=== PATIENT | male | born 1980 | race Caucasian/White ===

== ENCOUNTER 2022-04-19 11:57 | Inpatient (IN) | payer BC, SELFPAY ==
--- NOTE | ~2022-04-19 | XR_ITS ---
EXAMINATION: XR chest 2V DATE: 04/24/2022 08:54 INDICATION: Cough and fever TECHNIQUE: PA and lateral views of the chest were obtained. COMPARISON: Chest radiograph dated 09/12/2008 FINDINGS: New opacities in the bilateral lung bases with blunting at the costophrenic angles and posterior sulc i. The remainder of the lungs are clear. No pulmonary edema or pneumothorax. The cardiomediastinal si lhouette is normal. Visualized bones and soft tissues are unremarkable. IMPRESSION: 1. Small bilateral pleural effusions with bibasilar atelectasis versus pneumonia. Reviewed, dictated and finalized at location A. IMPRESSION: 1. Small bilateral pleural effusions with bibasilar atelectasis versus pneumoni a.
--- NOTE | ~2022-04-19 | CT_ITS ---
EXAMINATION: CT abdomen pelvis w con INDICATION: Nausea and vomiting, periumbilical pain TECHNIQUE: Computed tomographic images of the abdomen and pelvis were obtained after the administrati on of 100 cc of Omnipaque 350 intravenous contrast. The dose-length product (DLP) was 694.74 mGy-cm. Automated exposure control and iterative reconstruction technique were employed. COMPARISON: None available FINDINGS: Minimal dependent atelectasis is present in the lung bases. The heart size is normal. There is a small sliding hiatal hernia. There is mild diffusely decreased enhancement of the pancreas. A s mall amount of fluid surrounds the pancreas and tracks into the anterior pararenal space on the left. The liver is diffusely low in attenuation when compared with the spleen, consistent with hepatic yolanda atosis. The spleen, gallbladder, and adrenal glands are normal. The kidneys are unremarkable. No path ologically enlarged abdominal or pelvic lymph nodes are identified. There is no free intraperitoneal gas or evidence of bowel obstruction. The appendix is normal. There is a small fat-containing umbilic al hernia. IMPRESSION: 1. Acute pancreatitis, likely interstitial edematous with acute peripancreatic fluid collection. Reviewed, dictated and finalized at location A.
--- NOTE | ~2022-04-19 | CT_ITS ---
EXAMINATION: CT abdomen pelvis w con DATE: 04/26/2022 09:05 INDICATION: Pancreatitis TECHNIQUE: Computed tomography (CT) of the abdomen and pelvis was performed with 100 cc Omnipaque 350 intravenous contrast. The dose-length product was 663.13 mGy-cm. Automated exposure control and iter ative reconstruction technique were employed. COMPARISON: CT dated 04/21/2022 FINDINGS: Heart size is normal. Moderate size hiatal hernia. Small bilateral pleural effusions with u nderlying compressive atelectasis. No significant vascular abnormality. No lymphadenopathy. No free a ir. The liver, spleen, adrenal glands and kidneys are unremarkable. Gallbladder is present. Small fat-con taining umbilical hernia. There is pancreatic enlargement with peripancreatic fluid/inflammation, con sistent with acute pancreatitis. No significant change from prior examination. Stable small hypodensi ties of the pancreas which may represent focal areas of necrosis or developing pseudocyst formation. Nonobstructive bowel pattern. No acute osseous abnormality. IMPRESSION: 1. Stable findings of acute pancreatitis. Ill-defined hypodense areas within the pancreas may represe nt pseudocyst formation or pancreatic necrosis. Reviewed, dictated and finalized at location A. IMPRESSION: 1. Stable findings of acute pancreatitis. Ill-defined hypodense areas within th e pancreas may represent pseudocyst formation or pancreatic necrosis.
--- NOTE | ~2022-04-19 | MR_ITS ---
EXAMINATION: MR MRCP wo/w con/w 3D wo ind DATE: 04/23/2022 12:21 INDICATION: Pancreatitis. Abdominal pain. TECHNIQUE: Magnetic resonance imaging (MRI) of the abdomen was performed without and with 18 mL Multi Seun intravenous contrast. Sequences included coronal T2-weighted FS FSE, coronal T2-weighted FSE, a xial T1-weighted LAVA, coronal FS FIESTA, axial dual-echo T1-weighted SPGR, coronal lava-FLEX, sagitt al T2-weighted FSE, axial T2-weighted FSE, and axial DWI. Thick-slab T2-weighted FSE images were obta ined for magnetic resonance cholangiopancreatography (MRCP). Maximum intensity projection 3-D reconst ructions of the volumetric data were created by the technologist. Postcontrast sequences included cor onal LAVA-flex and time course of axial T1-weighted LAVA. COMPARISON: CT abdomen and pelvis 04/21/2022 FINDINGS: ABDOMEN MRI: There are small pleural effusions. There are dependent airspace opacities in the lungs, likely atelectasis. There is diffuse hepatic steatosis. The gallbladder is distended, likely secondar y to fasting. There is sludge in the gallbladder. There is a moderate-sized sliding hiatal hernia. Th ere is edema around the pancreas, consistent with acute interstitial pancreatitis. The spleen, adrena l glands, and kidneys are normal. There is a small volume of ascites. ABDOMEN MRCP: The common duct is normal in caliber and measures 2 mm. No choledocholithiasis. IMPRESSION: 1. Normal common duct. No choledocholithiasis. 2. Acute interstitial pancreatitis. 3. Small volume of ascites. 4. Small pleural effusions. 5. Diffuse hepatic steatosis. 6. Moderate-sized sliding hiatal hernia. Reviewed, dictated and finalized at location A.
--- NOTE | ~2022-04-19 | XR_ITS ---
EXAMINATION: XR abdomen/kub 1V DATE: 04/20/2022 13:47 INDICATION: Low abdominal pain. Adynamic ileus. TECHNIQUE: A supine view of the abdomen on 2 radiographs was obtained. COMPARISON: CT abdomen and pelvis 04/19/2022 FINDINGS: There are no dilated loops of bowel. There is a moderate volume of stool in the colon. IMPRESSION: 1. Nonobstructive bowel gas pattern. Reviewed, dictated and finalized at location A.
--- NOTE | ~2022-04-19 | US_ITS ---
EXAMINATION: US right upper quadrant DATE: 04/20/2022 09:47 INDICATION: Acute pancreatitis. Abnormal liver function tests. TECHNIQUE: Multiple grayscale and Doppler ultrasound images of the abdomen were obtained. COMPARISON: CT abdomen and pelvis 04/19/2022 FINDINGS: The pancreas is obscured by bowel gas. There is diffuse hepatic steatosis. No liver surface nodularity. The gallbladder is normal in size. No gallstones or gallbladder wall thickening. There w as no sonographic Calix sign. The common duct is normal and measures 6 mm. There is trace ascites. IMPRESSION: 1. Diffuse hepatic steatosis. 2. Trace ascites. Reviewed, dictated and finalized at location A.
--- NOTE | ~2022-04-19 | XR_ITS ---
EXAMINATION: XR abdomen/kub 1V DATE: 04/19/2022 21:09 INDICATION: Abdominal pain. Vomiting. TECHNIQUE: A supine view of the abdomen on 2 radiographs was obtained. COMPARISON: CT abdomen and pelvis 04/19/2022 FINDINGS: There are no dilated loops of bowel. There is a small volume of stool in the colon. There i s contrast in the bladder, which is distended. IMPRESSION: 1. Normal bowel gas pattern. Reviewed, dictated and finalized at location A.
--- NOTE | ~2022-04-19 | CT_ITS ---
EXAMINATION: CT abdomen pelvis w con DATE: 04/21/2022 18:07 INDICATION: pancreatitis, increasing WBC TECHNIQUE: Computed tomography (CT) of the abdomen and pelvis was performed with 100 mL Omnipaque-350 intravenous contrast. Automated exposure control and iterative reconstruction technique were employe d. The dose-length product was 750.61 mGy-cm. COMPARISON: 04/19/2022. FINDINGS: Lower thorax: Large hiatal hernia. New small bilateral pleural effusions with adjacent atelectasis. Liver: Steatosis. Biliary/Gallbladder: Gallbladder is normal. No bile duct dilation. Pancreas: 1.1 cm and 1.9 cm hypodensities in the posterior inferior body of the pancreas, may represe nt a developing pseudocysts or focal area of necrosis. Increasing peripancreatic edema and fluid. Spleen: Normal. Adrenals:No mass. Kidneys: No mass, stone, or hydronephrosis. GI tract: Dilated third portion of the duodenum, likely reactive ileus. Normal appendix. Mesentery/Peritoneum: No free air. Increasing, now moderate peritoneal fluid. Retroperitoneum: No mass. Small eccentric filling defects noted in the splenic vein. Pelvis: Pelvic organs are within normal limits. Soft Tissues: Soft tissues and body wall unremarkable. Bones: No acute osseous finding. IMPRESSION: Worsening findings of acute pancreatitis. Hypodense foci in the pancreatic body may represent a devel oping pseudocyst or focal necrosis. Multifocal nonocclusive splenic vein thrombi are suspected. New s mall bilateral pleural effusions. Moderate ascites. Reviewed, dictated and finalized at location K. IMPRESSION: Worsening findings of acute pancreatitis. Hypodense foci in the pancreatic body may represent a developing pseudocyst or focal necrosis. Multifocal nonocclusi ve splenic vein thrombi are suspected. New small bilateral pleural effusions. M oderate ascites.
--- NOTE | 2022-04-19 12:22 | ED.ABDPAIN ---
HPI - Abdominal Pain General Chief Complaint: Abdominal Pain Stated Complaint: abdominal pain x 1 day Time Seen by Provider: 04/19/22 12:01 History of Present Illness HPI narrative: 41-year-old male presented to the emergency department for evaluation of central abdominal pain that started approximately 10 AM. Patient states that he has central abdominal cramping with associated nausea and vomiting. Patient states since his first episode of emesis he has had no further emesis. Patient denies any constipation or diarrhea. Patient denies any previous surgical history. Patient denies any significant past medical history. Patient denies any prior history of gallbladder disease. Patient denies drinking alcohol. Patient has no prior history of pancreatitis. Related Data Allergies Allergy/AdvReac Type Severity Reaction Status Date / Time No Known Allergies Allergy Verified 04/19/22 12:48 Review of Systems Review of Systems: CONSTITUTIONAL: Denies fever, chills, or sweats. EYES: Denies visual changes, redness, or discharge. ENT: Denies rhinorrhea, congestion, sore throat, or otalgia. CARDIOVASCULAR: Denies chest pain, palpitations, or edema. RESPIRATORY: Denies cough or dyspnea. GASTROINTESTINAL: See HPI GENITOURINARY: Denies dysuria or hematuria. SKIN: Denies rash or itching. MUSCULOSKELETAL: Denies back pain, joint pain, or myalgia. NEUROLOGIC: Denies headache, numbness, or weakness. [facility] Past Medical History Medical History (Updated 04/19/22 @ 20:13 by Luna Lundy PA-C) Anxiety Benign essential hypertension No longer on medication. Depression Gastroesophageal reflux disease Surgical History Surgical History (Updated 04/19/22 @ 20:14 by Luna Lundy PA-C) History of colonoscopy History of esophagogastroduodenoscopy Family History Family History Mother Fibromyalgia Father Hypoglycemia Grandparent Diabetes mellitus Breast cancer Grandparent , Age 80 Parkinsons disease Grandparent , Lung Cancer Lung cancer Grandparent , Unknown No problems noted. Social History Social History (Updated 04/19/22 @ 20:15 by Luna Lundy PA-C) Social History: Surrogate medical decision maker: Linette Rider, spouse. Code status: Full code. Smoking status: Never smoker Alcohol intake: never Substance use: never Living arrangements: with family Occupation/Education: unemployed Spiritual care concerns: No Exam Narrative: APPEARANCE: Well appearing, no pain, no distress, well-nourished. HEAD: normocephalic, atraumatic. EYES: PERRLA/EOMI, conjunctivae clear. NOSE: Normal no drainage NECK: Supple. No adenopathy, no masses. RESPIRATORY: Airway patent, respirations nonlabored. Clear to auscultation bilaterally, no rales, rhonchi, wheezing. CARDIOVASCULAR: Regular rate and rhythm without murmurs rubs or gallops. ABDOMINAL: Soft, normal bowel sounds, nondistended, mid abdominal tenderness, no rebound or guarding MUSCULOSKELETAL: Moves all extremities. Strength/ROM intact, No edema, No calf tenderness. NEURO: Alert. Cranial nerves II through XII intact. Grossly intact with SKIN: Warm, dry. Normal Color Course Course Emergency Course: Patient does have a significantly elevated lipase. CT scan did show evidence of pancreatitis. Patient was treated with multiple liters of normal saline. Patient was also provided medications for pain and nausea control. Patient was updated the results of his labs and was comfortable with the plan for admission. Case was discussed with the hospitalist and patient was accepted. Patient was stable at time of admission. Vital Signs Vital signs: Vital Signs Temperature 97.6 F 04/19/22 12:46 Pulse Rate 88 04/19/22 12:46 Respiratory Rate 16 04/19/22 12:46 Blood Pressure 144/92 H 04/19/22 12:46 Pulse Oximetry 99
[2022-04-19 12:46] VITALS: BP 144/92; PULSE 88; RESP 16; TEMP 36.4; O2SAT 99
[2022-04-19] MEDS: HYDROmorphone HCL INJ (*CRX) 1 MG/ML SYR 0.5 MG IV PUSH ×3 (12:50→21:09)
[2022-04-19] MEDS: PANTOPRAZOLE SODIUM IV 40 MG VIAL IV PUSH (12:51)
[2022-04-19] MEDS: ONDANSETRON INJ 4 MG/2 ML VIAL IV PUSH ×2 (12:51→17:49)
[2022-04-19] MEDS: SODIUM CHLORIDE 0.9% IV 1,000 ML 999 ML IV CONT ×2 (12:51→14:17)
[2022-04-19 12:54] LABS: Basophils Absolute Auto 0.1 K/mm3 (0.0-0.1); Basophils Percent Auto 0.7 % (0.2-1.2); Eosinophils Absolute Auto 0.2 K/mm3 (0-0.3); Eosinophils Percent Auto 0.9 % (0-4.4); Hematocrit 40.4 % (42.0-52.0); Immature Granulocyte Absolute 0.08 K/mm3 (0.00-0.031); Immature Granulocyte Percent A 0.5 % (0-0.5); Lymphocytes Absolute Auto 3.12 K/mm3 (0.9-3.2); Lymphocytes Percent Auto 18.6 % (18.3-44.2); Mean Corpuscular HGB Conc 32.2 g/dl (32-36); Mean Corpuscular Hemoglobin 26.3 pg (26-34); Mean Corpuscular Volume 81.8 fl (80-100); Monocytes Percent Auto 5.8 % (2.6-8.5); Neutrophils Absolute Auto 12.3 K/mm3 (1.3-6.7); Neutrophils Percent Auto 73.5 % (45.5-73.1); Platelet Count Result 372 k/mm3 (150-375); Red Blood Count 4.94 M/mm3 (4.6-6.20); Red Cell Distribution Width 13.8 % (11.5-14.5); White Blood Count 16.7 K/mm3 (4.5-10.0)
[2022-04-19 12:57] LABS: Estimated CRCL calculation 106 ml/min; Estimated Glomerular Filt Rate > 60
[2022-04-19 13:04] LABS: Alanine Aminotransferase 32 U/L (6-50); Albumin Level 4.3 g/dL (3.5-5.1); Alkaline Phosphatase 78 U/L (38-126); Anion Gap 11 mmol/L (8-16); Aspartate Amino Transferase 82 U/L (17-59); Bilirubin,Total 0.5 mg/dL (0.2-1.3); Blood Urea Nitrogen 20 mg/dL (9-20); Calcium 9.1 mg/dL (8.4-10.2); Carbon Dioxide 21 mmol/L (22-30); Chloride 105 mmol/L (98-107); Estimated CRCL calculation 106 ml/min; Estimated Glomerular Filt Rate > 60; Glucose 137 mg/dL (65-110); Potassium 3.6 mmol/L (3.4-5.0); Sodium 137 mmol/L (137-145)
[2022-04-19 13:05] LABS: Lactic Acid Reflex 2.8 mmol/L (0.7-2.0)
[2022-04-19 14:01] LABS: Lipase > 40000 U/L (23-300)
--- NOTE | 2022-04-19 14:40 | PM.IMHP ---
H&P: HPI History of Present Illness Date/Time: 04/19/22 14:40 Chief Complaint: Abdominal pain. Narrative: This is a 41-year-old male with GERD and hypertension who presented to the emergency department from home for evaluation of abdominal pain. He felt fine when he woke up this morning and had pop tarts for breakfast. A couple of hours later, simply while sitting on the couch, he developed sudden onset periumbilical abdominal pain radiating to the epigastric and upper abdomen which he describes as ?cramping, aching, burning, and sharp.? He broke out into a sweat and he had significant nausea and several episodes of vomiting thereafter. The pain has been constant since the onset though it waxes and wanes in intensity. Pain is worse when lying supine and is somewhat better when in a curled up position he had a similar episode about a month ago however it was self-limiting and was not nearly as severe. He does not think it was related to food. In the ER he was found to have a lipase of greater than 40,000 with mild AST elevation however the rest of his LFTs are normal. CT of the abdomen and pelvis shows acute pancreatitis, likely interstitial edematous with acute peripancreatic fluid collection and he is being admitted in this setting. He has no personal or family history of pancreatitis. He has been on omeprazole for many years and takes no other medications or [id number]-[id number] supplements. He does not consume alcohol. He has been told previously that his cholesterol was high though he is not certain if his triglycerides were high. Review of Systems Review of Systems: Twelve systems were reviewed. No fever. He has had sweats. No cold or flu symptoms. He denies chest pain shortness of breath. No diarrhea. No dysuria. Except as documented, all other systems were reviewed and are negative. [facility] Past Medical History Medical History (Updated 04/19/22 @ 20:13 by Luna Lundy PA-C) Anxiety Benign essential hypertension No longer on medication. Depression Gastroesophageal reflux disease Surgical History Surgical History (Updated 04/19/22 @ 20:14 by Luna Lundy PA-C) History of colonoscopy History of esophagogastroduodenoscopy Family History Family History Mother Fibromyalgia Father Hypoglycemia Grandparent Diabetes mellitus Breast cancer Grandparent , Age 80 Parkinsons disease Grandparent , Lung Cancer Lung cancer Grandparent , Unknown No problems noted. Social History Social History (Updated 04/19/22 @ 20:15 by Luna Lundy PA-C) Social History: Surrogate medical decision maker: Linette Rider, spouse. Code status: Full code. Smoking status: Never smoker Alcohol intake: never Substance use: never Living arrangements: with family Occupation/Education: unemployed Spiritual care concerns: No Meds Home Medications and Allergies Home Medications Medication Instructions Recorded Confirmed Type omeprazole 40 mg capsule,delayed 40 mg PO DAILY #90 caps 12/28/19 04/19/22 Rx release Allergies Allergy/AdvReac Type Severity Reaction Status Date / Time No Known Allergies Allergy Verified 04/19/22 12:48 Vital Signs Vital Signs - 24 hr 04/19/22 12:46 04/19/22 16:29 04/19/22 16:26 Temperature 97.6 F 97.2 F L Pulse Rate 88 84 Respiratory Rate 16 16 Blood Pressure 144/92 H 140/93 H Pulse Oximetry 99 100 Oxygen Delivery Room Air Exam Narrative: General: Ill-appearing male sitting up in bed. Weight: 100 kg. BMI: 29.1. HEENT: PERRL, EOMI. Sclerae anicteric. Tacky mucous membranes. Neck: Supple. Respiratory: Lungs are clear to auscultation bilaterally. Cardiovascular: Regular rate and rhythm with S1-S2. Gastrointestinal: Abdomen is mildly distended and tender to palpation and percussion throughout the periumbilical eric
[2022-04-19 15:50] LABS: Reflex Lactic Acid Yes or No Add Lactic
--- NOTE | 2022-04-19 16:20 | ADMGEN ---
This patient, Hakan Rider, was admitted to 3 Med Surg Room 319-01. Patient/family oriented to hospital policies and general routines including ID bracelet, bed and alarms, visiting hours, pain management, procedures, bathroom and other care routines, personal items, smoking policy, room service/diet, and visiting hours. Information on how to activate the Rapid Response Team has been discussed. Patient/Family are encouraged to report perceived risks to care and to ask questions if they do not understand what they are told or what they should do.
[2022-04-19 16:26] VITALS: BP 140/93; PULSE 84; RESP 16; TEMP 36.2; O2SAT 100
[2022-04-19] MEDS: LACTATED RINGERS 1,000 ML 200 ML IV CONT ×2 (16:31→20:55)
[2022-04-19 17:01] LABS: Lactic Acid 1.8 mmol/L (0.7-2.0)
[2022-04-19 20:20] LABS: Alanine Aminotransferase 44 U/L (6-50); Albumin Level 4.1 g/dL (3.5-5.1); Alkaline Phosphatase 79 U/L (38-126); Anion Gap 10 mmol/L (8-16); Aspartate Amino Transferase 89 U/L (17-59); Bilirubin,Total 0.4 mg/dL (0.2-1.3); Blood Urea Nitrogen 16 mg/dL (9-20); Calcium 8.6 mg/dL (8.4-10.2); Carbon Dioxide 21 mmol/L (22-30); Chloride 106 mmol/L (98-107); Estimated CRCL calculation 118 ml/min; Estimated Glomerular Filt Rate > 60; Glucose 131 mg/dL (65-110); Magnesium 2.1 mg/dL (1.6-2.3); Potassium 4.3 mmol/L (3.4-5.0); Sodium 137 mmol/L (137-145); Triglycerides 319 mg/dL (<150)
[2022-04-19 20:56] LABS: Lipase 3957 U/L (23-300)
[2022-04-19] MEDS: PROMETHAZINE HCL 25 MG/ML AMPUL 12.5 MG IV PUSH (21:09)
[2022-04-19 22:00] VITALS: BP 145/87; PULSE 73; RESP 19; TEMP 36.5; O2SAT 96
[2022-04-19 22:05] LABS: Appearance Urine Clear (Clear); Bilirubin Urine Negative (Negative); Blood Urine Negative (Negative); Color Urine Yellow (Yellow); Glucose Urine UA Negative (Negative); Ketones Urine Negative (Negative); Leukocyte Esterase Ur Negative LEU/UL (Negative); Nitrate Urine Negative (Negative); Protein Urine Trace mg/dL (Negative); Urobilinogen Urine 0.2 mg/dL (<2.0)
[2022-04-19 22:08] LABS: Mucus Urine Rare /lpf; RBC Urine 0-2 /hpf (0-2); Squamous Epithelial Cell Urine Rare /hpf (Few); WBC Urine 0-3 /hpf
[2022-04-19 22:10] LABS: Add Urine Microscopic? YES
[2022-04-19] MEDS: FAMOTIDINE 20 MG/2 ML VIAL IV PUSH (22:42)
[2022-04-20] MEDS: ONDANSETRON INJ 4 MG/2 ML VIAL IV PUSH ×5 (01:43→18:35)
[2022-04-20] MEDS: HYDROmorphone HCL INJ (*CRX) 1 MG/ML SYR 0.5 MG IV PUSH ×2 (01:43→05:35)
[2022-04-20] MEDS: LACTATED RINGERS 1,000 ML 200 ML IV CONT ×2 (01:44→06:39)
[2022-04-20 05:57] VITALS: BP 179/80; PULSE 80; RESP 17; TEMP 36.7; O2SAT 99
[2022-04-20 06:12] LABS: Hematocrit 43.2 % (42.0-52.0); Hemoglobin 13.6 g/dL (14.0-18.0); Mean Corpuscular HGB Conc 31.5 g/dl (32-36); Mean Corpuscular Volume 82.4 fl (80-100); Mean Platelet Volume 11.7 fl (7.4-10.4); Platelet Count Result 340 k/mm3 (150-375); Red Blood Count 5.24 M/mm3 (4.6-6.20); Red Cell Distribution Width 14.3 % (11.5-14.5); White Blood Count 21.9 K/mm3 (4.5-10.0)
[2022-04-20 06:28] LABS: Alanine Aminotransferase 36 U/L (6-50); Alkaline Phosphatase 76 U/L (38-126); Anion Gap 9 mmol/L (8-16); Aspartate Amino Transferase 48 U/L (17-59); Bilirubin,Total 0.5 mg/dL (0.2-1.3); Blood Urea Nitrogen 14 mg/dL (9-20); Calcium 8.7 mg/dL (8.4-10.2); Carbon Dioxide 26 mmol/L (22-30); Chloride 101 mmol/L (98-107); Estimated CRCL calculation 118 ml/min; Estimated Glomerular Filt Rate > 60; Glucose 120 mg/dL (65-110); Lipase 1458 U/L (23-300); Sodium 136 mmol/L (137-145)
[2022-04-20 06:34] VITALS: BP 179/80
[2022-04-20] MEDS: HYDROmorphone HCL INJ (*CRX) 1 MG/ML SYR IV PUSH ×7 (06:53→20:49)
[2022-04-20] MEDS: FAMOTIDINE 20 MG/2 ML VIAL IV PUSH ×2 (08:01→20:50)
--- NOTE | 2022-04-20 11:19 | P.PNIM_ITS ---
Progress Note: A&P Assessment and Plan (1) Acute pancreatitis: Code(s): K85.90 - Acute pancreatitis without necrosis or infection, unspecified Status: Acute Assessment and Plan: * RIGHT UPPER QUADRANT ULTRASOUND NEGATIVE AND AST RESOLVED, VIRTUALLY EXCLUDING GALLSTONE PANCREATITIS * TRIGLYCERIDES IN THE 300S EXCLUDING HYPERTRIGLYCERIDEMIA ETIOLOGY * ALCOHOLIC PANCREATITIS IS EXCLUDED BY HISTORY * AUTOIMMUNE PANCREATITIS IS POSSIBLE BUT CLINICALLY LESS LIKELY THAN VIRAL OR IDIOPATHIC * IGG 4 LEVEL ORDERED 04/20 * KUB FOR POSSIBLE ILEUS 04/20 * CONTINUE IV FLUIDS AND BOWEL REST * START PPN IF UNABLE TO RESUME ORAL NUTRITION WITHIN THE NEXT 48 HOURS * CONSIDER REPEAT CT AND SURGICAL CONSULTATION IF WHITE COUNT CONTINUES TO RISE * 04/20 IMPROVEMENT IN LFTS AND LIPASE ARE AGAINST COMPLICATIONS SUCH N ECROSIS OR ABSCESS OR PSEUDOCYST * FOLLOW-UP LAB (2) Benign essential hypertension: Code(s): I10 - Essential (primary) hypertension Status: Acute Assessment and Plan: * CONTINUE TO MONITOR (3) Gastroesophageal reflux disease: Code(s): K21.9 - Gastro-esophageal reflux disease without esophagitis Status: Acute Assessment and Plan: * CONTINUE PPI (4) Hepatic steatosis: Code(s): K76.0 - Fatty (change of) liver, not elsewhere classified Status: Acute Assessment and Plan: * LIKELY RELATED TO OBESITY * CHECK HEMOGLOBIN A1C Subjective Date/time seen: 04/20/22 11:19 CONTINUES HAVE SEVERE EPIGASTRIC PAIN RADIATING STRAIGHT THROUGH TO THE BACK. SOME NAUSEA NO EMESIS. NO FLATUS OR STOOL. Denied chest pain or shortness of breath. Denied edema. Denied urinary issues. Review of Systems Review of Systems: All systems reviewed & are unremarkable except as noted in HPI and below Exam Narrative: HEENT: PERRL, sclerae nonicteric, pharyngeal mucosa pink and intact NECK: No JVD, adenopathy, or thyromegaly CHEST: Clear to auscultation. Normal effort. HEART: NL S1/S2, regular, no murmur ABDOMEN: BOWEL SOUNDS NOT AUDIBLE, ABDOMEN AND DISTENDED AND RELATIVELY FIRM, DIFFUSELY TENDER BUT MORE SO IN EPIGASTRIUM WITH GUARDING NO REBOUND, NO PALPABLE MASS EXTREMITIES: No cyanosis, edema, or clubbing NEUROLOGIC: CN intact and symmetric to inspection. MUSCULOSKELETAL: Tone and strength symmetric. PSYCH: Alert. Oriented to person, place, and time. Objective Data Vital Signs Vital Signs: Vital Signs - 24 hr 04/19/22 12:46 04/19/22 16:29 04/19/22 16:26 Temperature 97.6 F 97.2 F L Pulse Rate 88 84 Respiratory Rate 16 16 Blood Pressure 144/92 H 140/93 H Pulse Oximetry 99 100 Oxygen Delivery Room Air 04/19/22 20:00 04/19/22 22:00 04/20/22 05:57 Temperature 97.7 F 98.1 F Pulse Rate 73 80 Respiratory Rate 19 17 Blood Pressure 145/87 H 179/80 H Pulse Oximetry 96 99 Oxygen Delivery Room Air 04/20/22 06:34 04/20/22 08:00 Temperature Pulse Rate Respiratory Rate Blood Pressure 179/80 H Pulse Oximetry Oxygen Delivery Room Air Intake/Output Intake/Output: Intake & Output 04/17/22 04/18/22 04/19/22 04/20/22 23:59 23:59 23:59 23:59 Intake Total 3000 1999 Balance 30
--- NOTE | 2022-04-20 11:19 | PM.IMPN ---
Progress Note: A&P Assessment and Plan (1) Acute pancreatitis: Code(s): K85.90 - Acute pancreatitis without necrosis or infection, unspecified Status: Acute Assessment and Plan: RIGHT UPPER QUADRANT ULTRASOUND NEGATIVE AND AST RESOLVED, VIRTUALLY EXCLUDING GALLSTONE PANCREATITIS TRIGLYCERIDES IN THE 300S EXCLUDING HYPERTRIGLYCERIDEMIA ETIOLOGY ALCOHOLIC PANCREATITIS IS EXCLUDED BY HISTORY AUTOIMMUNE PANCREATITIS IS POSSIBLE BUT CLINICALLY LESS LIKELY THAN VIRAL OR IDIOPATHIC IGG 4 LEVEL ORDERED 04/20 KUB FOR POSSIBLE ILEUS 04/20 CONTINUE IV FLUIDS AND BOWEL REST START PPN IF UNABLE TO RESUME ORAL NUTRITION WITHIN THE NEXT [address] AND SURGICAL CONSULTATION IF WHITE COUNT CONTINUES TO RISE 04/20 IMPROVEMENT IN LFTS AND LIPASE ARE AGAINST COMPLICATIONS SUCH NECROSIS OR ABSCESS OR PSEUDOCYST FOLLOW-UP LAB (2) Benign essential hypertension: Code(s): I10 - Essential (primary) hypertension Status: Acute Assessment and Plan: CONTINUE TO MONITOR (3) Gastroesophageal reflux disease: Code(s): K21.9 - Gastro-esophageal reflux disease without esophagitis Status: Acute Assessment and Plan: CONTINUE PPI (4) Hepatic steatosis: Code(s): K76.0 - Fatty (change of) liver, not elsewhere classified Status: Acute Assessment and Plan: LIKELY RELATED TO OBESITY CHECK HEMOGLOBIN A1C Subjective Date/time seen: 04/20/22 11:19 CONTINUES HAVE SEVERE EPIGASTRIC PAIN RADIATING STRAIGHT THROUGH TO THE BACK. SOME NAUSEA NO EMESIS. NO FLATUS OR STOOL. Denied chest pain or shortness of breath. Denied edema. Denied urinary issues. Review of Systems Review of Systems: All systems reviewed & are unremarkable except as noted in HPI and below Exam Narrative: HEENT: PERRL, sclerae nonicteric, pharyngeal mucosa pink and intact NECK: No JVD, adenopathy, or thyromegaly CHEST: Clear to auscultation. Normal effort. HEART: NL S1/S2, regular, no murmur ABDOMEN: BOWEL SOUNDS NOT AUDIBLE, ABDOMEN AND DISTENDED AND RELATIVELY FIRM, DIFFUSELY TENDER BUT MORE SO IN EPIGASTRIUM WITH GUARDING NO REBOUND, NO PALPABLE MASS EXTREMITIES: No cyanosis, edema, or clubbing NEUROLOGIC: CN intact and symmetric to inspection. MUSCULOSKELETAL: Tone and strength symmetric. PSYCH: Alert. Oriented to person, place, and time. Objective Data Vital Signs Vital Signs: Vital Signs - 24 hr 04/19/22 12:46 04/19/22 16:29 04/19/22 16:26 Temperature 97.6 F 97.2 F L Pulse Rate 88 84 Respiratory Rate 16 16 Blood Pressure 144/92 H 140/93 H Pulse Oximetry 99 100 Oxygen Delivery Room Air 04/19/22 20:00 04/19/22 22:00 04/20/22 05:57 Temperature 97.7 F 98.1 F Pulse Rate 73 80 Respiratory Rate 19 17 Blood Pressure 145/87 H 179/80 H Pulse Oximetry 96 99 Oxygen Delivery Room Air 04/20/22 06:34 04/20/22 08:00 Temperature Pulse Rate Respiratory Rate Blood Pressure 179/80 H Pulse Oximetry Oxygen Delivery Room Air Intake/Output Intake/Output: Intake & Output 04/17/22 04/18/22 04/19/22 04/20/22 23:59 23:59 23:59 23:59 Intake Total 3000 1999 Balance 3000 1999 Meds/Results Medications: Active Medications Generic Name Dose Route Start Last Admin Trade Name Freq PRN Reason Stop Dose Admin Bisacodyl 10 mg 04/20/22 11:11 Bisacodyl 10 Mg Suppository RECTAL QAM PRN Constipation Famotidine 20 mg 04/19/22 21:00 04/20/22 08:01 Famotidine 20 Mg/2 Ml Vial IV PUSH 20 mg Q12HR MERYL Administration Hydromorphone HCl 1 mg 04/20/22 11:10 Hydromorphone Hcl Inj (*Crx) 1 Mg/Ml Syr IV PUSH Q2H PRN Pain Rated 7-10 Lactated Ringer's 1,000 mls @ 100 mls/hr 04/19/22 14:55 04/20/22 06:39 Lr - Lactated Ringers Iv IV CONT 200 mls/hr .Q10H MERYL Administration Ondansetron HCl 4 mg 04/19/22 14:26 04/20/22 10:06 Ondansetron Inj 4 Mg/2 Ml Vial IV PUSH 4 mg Q4H
[2022-04-20] MEDS: LACTATED RINGERS 1,000 ML 100 ML IV CONT ×2 (11:46→20:56)
[2022-04-20 14:00] VITALS: BP 183/126; PULSE 109; RESP 18; TEMP 37; O2SAT 98
[2022-04-20 20:37] VITALS: O2SAT 94
[2022-04-20 21:47] VITALS: BP 163/95; PULSE 115; RESP 18; TEMP 36.9; O2SAT 94
[2022-04-20 22:49] VITALS: BP 163/95; PULSE 115
[2022-04-21] VITALS (7 sets, daily range): BP systolic 145–168; BP diastolic 83–100; PULSE 98–120; RESP 18–20; TEMP 36.8–38; O2SAT 95–100
[2022-04-21] MEDS: METOPROLOL TARTRATE INJ 5 MG/5 ML VIAL IV PUSH ×4 (01:14→17:12)
[2022-04-21] MEDS: HYDROmorphone HCL INJ (*CRX) 1 MG/ML SYR IV PUSH ×2 (01:23→12:43)
[2022-04-21] MEDS: KETOROLAC 30 MG/ML VIAL (*BKC) IV PUSH ×3 (04:14→16:11)
[2022-04-21] MEDS: hydrALAZINE HCL 20 MG/ML VIAL 10 MG IV PUSH (04:15)
[2022-04-21 06:08] LABS: Hematocrit 43.9 % (42.0-52.0); Hemoglobin 13.6 g/dL (14.0-18.0); Mean Corpuscular Hemoglobin 26.3 pg (26-34); Mean Corpuscular Volume 84.9 fl (80-100); Mean Platelet Volume 11.9 fl (7.4-10.4); Platelet Count Result 330 k/mm3 (150-375); Red Blood Count 5.17 M/mm3 (4.6-6.20); Red Cell Distribution Width 14.7 % (11.5-14.5); White Blood Count 30.7 K/mm3 (4.5-10.0)
[2022-04-21 06:30] LABS: Lactic Acid Reflex 1.7 mmol/L (0.7-2.0)
[2022-04-21 06:45] LABS: Procalcitonin 0.9 ng/mL
[2022-04-21] MEDS: LACTATED RINGERS 1,000 ML 100 ML IV CONT ×2 (06:51→21:42)
[2022-04-21 07:48] LABS: Alanine Aminotransferase 25 U/L (6-50); Albumin Level 3.8 g/dL (3.5-5.1); Alkaline Phosphatase 86 U/L (38-126); Anion Gap 11 mmol/L (8-16); Aspartate Amino Transferase 35 U/L (17-59); Bilirubin,Total 1.1 mg/dL (0.2-1.3); Blood Urea Nitrogen 10 mg/dL (9-20); CRP 35.5 mg/dL (<1.0); Calcium 8.5 mg/dL (8.4-10.2); Carbon Dioxide 26 mmol/L (22-30); Chloride 100 mmol/L (98-107); Estimated CRCL calculation 106 ml/min; Estimated Glomerular Filt Rate > 60; Glucose 95 mg/dL (65-110); Hemoglobin A1C 5.6 % (<5.7); Lipase 711 U/L (23-300); Potassium 3.5 mmol/L (3.4-5.0); Sodium 137 mmol/L (137-145)
[2022-04-21] MEDS: FAMOTIDINE 20 MG/2 ML VIAL IV PUSH ×2 (08:56→21:41)
--- NOTE | 2022-04-21 14:36 | PM.IMPN ---
Progress Note: A&P Assessment and Plan (1) Acute pancreatitis: Code(s): K85.90 - Acute pancreatitis without necrosis or infection, unspecified Status: Acute Assessment and Plan: Patient presents with abdominal pain and found to have a lipase of >40K. CT of the abdomen pelvis shows acute pancreatitis as well as acute peripancreatic fluid collection. Right upper quadrant ultrasound shows hepatic steatosis and trace ascites. But no gallstones. No gallbladder wall thickening. Common bile duct measurement is normal. Triglycerides 319. Patient denies alcohol use. IgG subclass panel is pending. Consider passed gallstone? Lipase is trend down to 711. White count however has climbed to 31 K with CRP 35. Procalcitonin however 0.9. Suspect leukocytosis is more likely related to inflammatory response from the pancreatitis verses bacterial infection. KUB yesterday showed normal bowel gas pattern. Will add suppository. Will have General surgery on consult. Will repeat CT scan. Consider MRCP. (2) Benign essential hypertension: Code(s): I10 - Essential (primary) hypertension Status: Acute Assessment and Plan: Patient with a history of hypertension. He is not on anti hypertensive agents on admission. Blood pressure reviewed a blood pressure mildly elevated. He remains on IV Lopressor. Continue to monitor. (3) Gastroesophageal reflux disease: Code(s): K21.9 - Gastro-esophageal reflux disease without esophagitis Status: Acute Assessment and Plan: Stable. Continue Pepcid. (4) Hepatic steatosis: Code(s): K76.0 - Fatty (change of) liver, not elsewhere classified Status: Acute Assessment and Plan: Hepatic steatosis noted on imaging. A1c 5.6. Encouraged healthy lifestyle. Plan DVT prophylaxis: SCDs Diet: NPO Code status: Full Disposition: Home Subjective Date/time seen: 04/21/22 14:36 Interval history: 41yo male with HTN and GERD [place] presents with abdominal pain and found to have pancreatitis. Assuming care. Chart reviewed. Abd pain minimal at rest. Worse with deep breathing or sitting up. Not out of bed much. Does no feel hungry. No n/v. No flatus or BMs since admission. No CP or SOB. Minimal dry cough that is chronic for him. No dysuria or hematuria. Had a headache earlier (also not uncommon) that he used an ice pack which he does commonly at home. SKAGGS resolved at this time. Exam Narrative: AF 98.2 150/88 101 20 99% Gen - NARD lying almost flat in bed Chest - decreased BS in the bases o/w clear. CV - tachycardic, regular. Abd - Soft, distended and tympanitic. quiet. tender mostly in the epigastric region. Ext - No pedal edema Neuro - Alert and oriented. Nonfocal exam. Psych - Nml mood and affect Skin - Warm and dry Objective Data Vital Signs Vital Signs: Vital Signs - 24 hr 04/20/22 21:47 04/20/22 22:49 04/20/22 20:00 Temperature 98.5 F Pulse Rate 115 H 115 H Respiratory Rate 18 Blood Pressure 163/95 H 163/95 H Pulse Oximetry 94 Oxygen Delivery Room Air 04/20/22 20:37 04/21/22 03:17 04/21/22 06:16 Temperature 99.3 F Pulse Rate 116 H 114 H Respiratory Rate 18 Blood Pressure 168/100 H 148/83 H Pulse Oximetry 94 100 95 Oxygen Delivery Room Air 04/21/22 06:51 04/21/22 09:00 04/21/22 12:43 Temperature Pulse Rate 114 H 120 H Respiratory Rate Blood Pressure Pulse Oximetry Oxygen Delivery Room Air 04/21/22 14:00 Temperature 98.2 F Pulse Rate 101 H Respiratory Rate 20 Blood Pressure 150/88 H Pulse Oximetry 99 Oxygen Delivery Intake/Output Intake/Output: Intake & Output 04/18/22 04/19/22 04/20/22 04/21/22 23:59 23:59 23:59 23:59 Intake Total 3000 4000 1000 Balance 3000 4000 1000 Meds/Results Medications: Active Medications Generic Name Dose Route Start Last Admin Trade Name Freq PRN Reason Stop Dose Admin Bisacodyl 10 mg
--- NOTE | 2022-04-21 16:04 | PM.CNGS ---
Assessment and Plan Assessment and plan (1) Acute pancreatitis: Code(s): K85.90 - Acute pancreatitis without necrosis or infection, unspecified Status: Acute Assessment and Plan: Seems to be improving. If white count continues to increase or if pain should recur, would recommend repeat CT scan. At the present time, there is no evidence of pancreatic necrosis or abscess. There are no gallstones. No indication for surgical intervention or radiologic intervention. Will go ahead and sign off. Pancreatitis appears to be idiopathic although gastroenterology may wish to evaluate. Thank you for asking me to see this patient in consultation. Please call if I can be of further assistance. History of Present Illness Consult details Consult date: 04/21/22 Reason for consult: other (Acute pancreatitis) Requesting physician: Johnny Kirk MD Narrative: Patient is a 41-year-old generally healthy man who 3 days ago about 10:00 a.m. in the morning started having abdominal pain. He had eaten breakfast about an hour before that. He had a couple of pops tarts. Pain was in his mid abdomen and became worse as time went on. He was diaphoretic. He tried to roll up into a position. He vomited at least a couple of times. He came to the emergency room and was found to have severe acute pancreatitis. His serum lipase was greater than 40,000. CT scan confirmed acute pancreatitis. There was fluid around the pancreas. No gallstones were noted. Patient denies having used any alcohol at all prior to the onset. He has no family history of gallbladder disease. He was admitted to the hospital and had been in pretty much constant pain requiring pain medications every couple of hours until early this morning when the pain started to improve. He had a headache and took some pain medicine for that the does not really recall asking for pain medication throughout the day today. His serum lipase has come down nicely and today is 711. His white blood cell count, has continued to rise and today is 31,000. He had a right upper quadrant ultrasound which was negative for gallstones. He is seen now in consultation. He has never had pancreatitis previously. Review of Systems Review of Systems: All systems reviewed & are unremarkable except as noted in HPI and below (HPI and those items noted below) Constitutional: Constitutional: Denies chills and Denies fever(s) Cardiovascular: Cardiovascular: Denies chest pain, Denies diaphoresis, Denies dyspnea and Denies paroxysmal nocturnal dyspnea Respiratory: Respiratory: Denies chest congestion, Denies cough and Denies dyspnea Gastrointestinal: Gastrointestinal: Reports as per HPI, Reports abdominal pain and Reports vomiting Integumentary/Breasts: Skin/Breast: Denies lesions and Denies rash [facility] Past Medical History Medical History (Updated 04/20/22 @ 11:27 by Gunnar Zamarripa MD) Anxiety Benign essential hypertension No longer on medication. Depression Gastroesophageal reflux disease Surgical History Surgical History (Updated 04/19/22 @ 20:14 by Luna Lundy PA-C) History of colonoscopy History of esophagogastroduodenoscopy Family History Family History Mother Fibromyalgia Father Hypoglycemia Grandparent Diabetes mellitus Breast cancer Grandparent , Age 80 Parkinsons disease Grandparent , Lung Cancer Lung cancer Grandparent , Unknown No problems noted. Social History Social History (Updated 04/19/22 @ 20:15 by Luna Lundy PA-C) Social History: Surrogate medical decision maker: Linette Rider, spouse. Code status: Full code. Smoking status: Never smoker Alcohol intake: never Substance use: never Living arrangements: with family Occupation/Education: unemployed Spiritual care concerns: No Meds Home Medi
[2022-04-21] MEDS: BISACODYL 10 MG SUPPOSITORY RECTAL (16:11)
--- NOTE | 2022-04-21 20:53 | P.PNCROSS_ITS ---
Event Note Event Note Event Note: Reviewed CT scan results with Dr. Cunningham in. I had already placed patient on t herapeutic doses of Lovenox. She recommended IV Zosyn.
--- NOTE | 2022-04-21 20:53 | PM.EVENT ---
Event Note Event Note Event Note: Reviewed CT scan results with Dr. Cunningham in. I had already placed patient on therapeutic doses of Lovenox. She recommended IV Zosyn.
[2022-04-21 21:34] LABS: Basophils Percent Auto 0.2 % (0.2-1.2); Eosinophils Absolute Auto 3.5 K/mm3 (0-0.3); Eosinophils Percent Auto 15.6 % (0-4.4); Hematocrit 44.1 % (42.0-52.0); Immature Granulocyte Absolute 0.19 K/mm3 (0.00-0.031); Immature Granulocyte Percent A 0.8 % (0-0.5); Lymphocytes Absolute Auto 1.41 K/mm3 (0.9-3.2); Lymphocytes Percent Auto 6.3 % (18.3-44.2); Mean Corpuscular HGB Conc 31.7 g/dl (32-36); Mean Corpuscular Hemoglobin 26.8 pg (26-34); Mean Corpuscular Volume 84.3 fl (80-100); Mean Platelet Volume 11.2 fl (7.4-10.4); Monocytes Percent Auto 4.4 % (2.6-8.5); Neutrophils Absolute Auto 16.3 K/mm3 (1.3-6.7); Neutrophils Percent Auto 72.7 % (45.5-73.1); Platelet Count Result 342 k/mm3 (150-375); Red Blood Count 5.23 M/mm3 (4.6-6.20); Red Cell Distribution Width 14.9 % (11.5-14.5); White Blood Count 22.4 K/mm3 (4.5-10.0)
[2022-04-21 21:45] LABS: INR 1.2
[2022-04-21 21:46] LABS: Partial Thromboplastin Time 36.1 SECONDS (22.3-36.8)
[2022-04-21] MEDS: HEPARIN SODIUM 5,000 UNITS/ML VIAL 7000 UNITS IV PUSH (22:20)
[2022-04-21] MEDS: HEPARIN SOD/D5W 100 UNITS/ML 25,000 UNITS/250 ML BAG 15 UNITS IV CONT (22:21)
[2022-04-21] MEDS: ONDANSETRON INJ 4 MG/2 ML VIAL IV PUSH (22:27)
[2022-04-22] VITALS (10 sets, daily range): BP systolic 142–161; BP diastolic 93–103; PULSE 85–124; RESP 18; TEMP 36.6–37.8; O2SAT 95–98
[2022-04-22] MEDS: METOPROLOL TARTRATE INJ 5 MG/5 ML VIAL IV PUSH ×3 (00:15→13:27)
[2022-04-22] MEDS: HYDROmorphone HCL INJ (*CRX) 1 MG/ML SYR IV PUSH ×4 (04:40→16:19)
[2022-04-22] MEDS: ONDANSETRON INJ 4 MG/2 ML VIAL IV PUSH ×3 (04:40→16:19)
[2022-04-22 05:48] LABS: Hematocrit 37.6 % (42.0-52.0); Hemoglobin 11.7 g/dL (14.0-18.0); Mean Corpuscular HGB Conc 31.1 g/dl (32-36); Mean Corpuscular Hemoglobin 26.4 pg (26-34); Mean Corpuscular Volume 84.7 fl (80-100); Mean Platelet Volume 11.2 fl (7.4-10.4); Platelet Count Result 270 k/mm3 (150-375); Red Blood Count 4.44 M/mm3 (4.6-6.20); Red Cell Distribution Width 14.7 % (11.5-14.5); White Blood Count 19.8 K/mm3 (4.5-10.0)
[2022-04-22 06:04] LABS: Alanine Aminotransferase 18 U/L (6-50); Albumin Level 3.5 g/dL (3.5-5.1); Alkaline Phosphatase 77 U/L (38-126); Anion Gap 8 mmol/L (8-16); Aspartate Amino Transferase 33 U/L (17-59); Bilirubin,Total 0.7 mg/dL (0.2-1.3); Blood Urea Nitrogen 12 mg/dL (9-20); Calcium 8.2 mg/dL (8.4-10.2); Carbon Dioxide 25 mmol/L (22-30); Chloride 103 mmol/L (98-107); Estimated CRCL calculation 106 ml/min; Estimated Glomerular Filt Rate > 60; Glucose 117 mg/dL (65-110); Lipase 381 U/L (23-300); Potassium 3.4 mmol/L (3.4-5.0); Sodium 136 mmol/L (137-145)
[2022-04-22 06:06] LABS: Partial Thromboplastin Time 62.5 SECONDS (22.3-36.8)
[2022-04-22] MEDS: HEPARIN SODIUM 5,000 UNITS/ML VIAL 3500 UNITS IV PUSH ×2 (06:16→13:27)
[2022-04-22] MEDS: FAMOTIDINE 20 MG/2 ML VIAL IV PUSH ×2 (08:17→20:52)
[2022-04-22] MEDS: LACTATED RINGERS 1,000 ML 100 ML IV CONT ×2 (08:27→20:04)
[2022-04-22] MEDS: BISACODYL 10 MG SUPPOSITORY RECTAL (08:27)
[2022-04-22 12:55] LABS: Partial Thromboplastin Time 65.9 SECONDS (22.3-36.8)
[2022-04-22] MEDS: HEPARIN SOD/D5W 100 UNITS/ML 25,000 UNITS/250 ML BAG 19 UNITS IV CONT (13:30)
--- NOTE | 2022-04-22 14:10 | WPDGICN ---
Assessment and Plan Assessment and plan (1) Acute pancreatitis: Code(s): K85.90 - Acute pancreatitis without necrosis or infection, unspecified Status: Acute Assessment and Plan: His pancreatitis came on suddenly. So far there is no etiology known for his pancreatitis. He does not drink alcohol. Liver enzymes are not elevated to suggest choledocholithiasis. We will need to consider the possibility of pancreas divisum or other anomaly. MRI will be helpful in that regard. Because he had his 2nd CT scan last night I think we will wait a couple of days to do the MRI to help follow the progress and evolution of his pancreatitis in addition to providing any evidence of structural abnormalities . He is on antibiotics as he does have evidence of some early necrotizing changes in the pancreas. His white blood count was initially 30,000. Is now down to 19,800. I discussed with him the fact that pancreatitis, like a sprain or pulled muscle, must heal on its own. At that there is no medication that speeds up the recovery. I explained that because it is the primary source for enzymes to digest food, that eating would not be advantageous as it likely would cause pain and probably inflammation to worsen. Nevertheless, I think that he would be able to tolerate clear liquids (2) Hepatic steatosis: Code(s): K76.0 - Fatty (change of) liver, not elsewhere classified Status: Acute (3) Ascites: Code(s): R18.8 - Other ascites Status: Acute Assessment and Plan: this may be pancreatic ascites. It is best not to tap it unless it becomes extensive. (4) GERD (gastroesophageal reflux disease): Code(s): K21.9 - Gastro-esophageal reflux disease without esophagitis Status: Acute Assessment and Plan: he has been treated for reflux for quite some time and has had no change in no symptoms. (5) Leukocytosis: Code(s): D72.829 - Elevated white blood cell count, unspecified Status: Acute Assessment and Plan: this is likely due to inflammation. It is rare to have infected necrosis from pancreatitis within the 1st for 5 days. Nevertheless antibiotics may be of help. GI Consult Note Consult date/time: 04/22/22 14:10 HPI: Hakan Rider is a 41 year old male who suddenly developed epigastric pain on Friday morning. The only thing he had the eat that day was a pop tart. He had several episodes of vomiting that day, Including once after admission. He has had persistent pain since then and is mildly relieved by Dilaudid. He is feeling a bit distended and constipated. He has been up walking around the try in help pass gas. He has never had pancreatitis in the past. On admission his lipase was greater than 40,000. he does not drink alcohol. He has not had hypertriglyceridemia. His triglyceride level here is slightly elevated at 319 but not in a range that would cause pancreatitis. Ultrasound was negative for gallstones. There is no family history of pancreatic disease. He has not recently been started any new medications. He only takes omeprazole once daily. He has no autoimmune diseases. CT scan shows pancreatitis and early thrombosis of small splenic vessels: Worsening findings of acute pancreatitis. Hypodense foci in the pancreatic body may represent a developing pseudocyst or focal necrosis. Multifocal nonocclusive splenic vein thrombi are suspected. New small bilateral pleural effusions. Moderate ascites. Review of Systems Review of Systems: All systems reviewed & are unremarkable except as noted in HPI and below PMFSH Past Medical History Medical History Anxiety Benign essential hypertension No longer on medication. Depression Gastroesophageal reflux disease Surgical History Surgical History History of colonoscopy History of esophagogastrodu
--- NOTE | 2022-04-22 17:00 | PM.IMPN ---
Progress Note: A&P Assessment and Plan (1) Acute pancreatitis: Code(s): K85.90 - Acute pancreatitis without necrosis or infection, unspecified Status: Acute Assessment and Plan: Patient presents with abdominal pain and found to have a lipase of >40K. CT of the abdomen pelvis shows acute pancreatitis as well as acute peripancreatic fluid collection. Right upper quadrant ultrasound shows hepatic steatosis and trace ascites but no gallstones. No gallbladder wall thickening. Common bile duct measurement is normal. Triglycerides 319. Patient denies alcohol use. IgG subclass panel is pending. Consider passed gallstone? Consider pancreas divisum. Lipase is trend down to 381. White count climbed to 31 K with CRP 35. Procalcitonin 0.9. CT repeated showing worsening findings of acute pancreatitis with pseudocyst vs necorsis, splenic vein thrombosis and moderate ascites. Small bilateral pleural effusions related to pancreatitis and IV fluids. Heparin started. Zosyn started 04/21 at 2230. Ascites is reactionary. Suspect leukocytosis is more likely related to inflammatory response from the pancreatitis verses bacterial infection. WBC already coming down even before the abx. GI consulted and appreciate their input. Consider MRCP. Clear liquids started. (2) Splenic vein thrombosis: Code(s): I82.890 - Acute embolism and thrombosis of other specified veins Status: Acute Assessment and Plan: CT scan showing multifocal nonocclusive splenic vein thrombi. Heparin Drip started on 04/22. Continue to monitor H&H closely. Appreciate GI input. (3) Leukocytosis: Code(s): D72.829 - Elevated white blood cell count, unspecified Status: Acute Assessment and Plan: White count was elevated on admission and climbed to 31K. Suspect this is more related to noninfectious inflammatory response than true infection of the pancreatic necrosis. White count was trending down prior to starting antibiotics. White count continues to trend downward. Will continue to monitor. Continue antibiotics for now. (4) Ascites: Code(s): R18.8 - Other ascites Status: Acute Assessment and Plan: Ascites related to the pancreatitis. This should resolve on its own. (5) Benign essential hypertension: Code(s): I10 - Essential (primary) hypertension Status: Acute Assessment and Plan: Patient with a history of hypertension. He is not on anti hypertensive agents on admission. Blood pressure reviewed and blood pressure mildly elevated. He remains on IV Lopressor. Continue to monitor. Change to oral metoprolol since now taking oral. (6) Gastroesophageal reflux disease: Code(s): K21.9 - Gastro-esophageal reflux disease without esophagitis Status: Acute Assessment and Plan: Stable. Continue Pepcid. (7) Hepatic steatosis: Code(s): K76.0 - Fatty (change of) liver, not elsewhere classified Status: Acute Assessment and Plan: Hepatic steatosis noted on imaging. A1c 5.6. Encouraged healthy lifestyle. Plan DVT prophylaxis: Heparin Diet: NClear liquids Code status: Full Disposition: Home Subjective Date/time seen: 04/22/22 17:00 Interval history: 41yo male with HTN and GERD [place] presents with abdominal pain and found to have pancreatitis. Pain better. Slight nausea. NPO currently. Passing flatus and BMs. Up ambulating in the halls with family. No CP or SOB. Exam Narrative: AF 98.3 158/98 94 18 96% ra Gen - NARD lying almost flat in bed Chest - decreased BS in the bases o/w clear. CV - RRR S1/S2 Abd - Soft, distended and tympanitic in the upper abdomen. +BS. Tender mostly in the epigastric region. Ext - No pedal edema Neuro - Alert and oriented. Nonfocal exam. Psych - Nml mood and affect Skin - Warm and dry Objective Data Vital Signs Vital Signs: Vital Signs - 24 hr 04/21/22 17:12 04/21/22 22:00 08
[2022-04-22 19:53] LABS: Partial Thromboplastin Time 88.8 SECONDS (22.3-36.8)
[2022-04-22] MEDS: METOPROLOL TARTRATE 12.5 MG TABLET PO (20:52)
[2022-04-22] MEDS: hydrALAZINE HCL 20 MG/ML VIAL 10 MG IV PUSH (21:48)
[2022-04-23] VITALS (8 sets, daily range): BP systolic 151–161; BP diastolic 86–107; PULSE 86–105; RESP 16–18; TEMP 37.3–38.3; O2SAT 95–97
[2022-04-23 02:11] LABS: Hematocrit 41.9 % (42.0-52.0); Mean Corpuscular Hemoglobin 26.1 pg (26-34); Platelet Count Result 320 k/mm3 (150-375); Red Blood Count 4.99 M/mm3 (4.6-6.20); Red Cell Distribution Width 14.6 % (11.5-14.5); White Blood Count 15.7 K/mm3 (4.5-10.0)
[2022-04-23 02:24] LABS: Partial Thromboplastin Time 72.3 SECONDS (22.3-36.8)
[2022-04-23 02:24] LABS: Alanine Aminotransferase 21 U/L (6-50); Albumin Level 4.1 g/dL (3.5-5.1); Alkaline Phosphatase 97 U/L (38-126); Anion Gap 12 mmol/L (8-16); Aspartate Amino Transferase 36 U/L (17-59); Bilirubin,Total 0.7 mg/dL (0.2-1.3); Blood Urea Nitrogen 10 mg/dL (9-20); Calcium 9.2 mg/dL (8.4-10.2); Carbon Dioxide 25 mmol/L (22-30); Chloride 102 mmol/L (98-107); Estimated CRCL calculation 106 ml/min; Estimated Glomerular Filt Rate > 60; Glucose 98 mg/dL (65-110); Lipase 439 U/L (23-300); Magnesium 2.5 mg/dL (1.6-2.3); Phosphorus 3.3 mg/dL (2.5-4.5); Potassium 3.2 mmol/L (3.4-5.0); Sodium 139 mmol/L (137-145)
[2022-04-23] MEDS: HYDROmorphone HCL INJ (*CRX) 1 MG/ML SYR IV PUSH ×3 (02:37→17:55)
[2022-04-23] MEDS: ONDANSETRON INJ 4 MG/2 ML VIAL IV PUSH ×3 (02:37→17:55)
[2022-04-23] MEDS: HEPARIN SOD/D5W 100 UNITS/ML 25,000 UNITS/250 ML BAG 19 UNITS IV CONT (02:42)
[2022-04-23] MEDS: hydrALAZINE HCL 20 MG/ML VIAL 10 MG IV PUSH (06:08)
[2022-04-23] MEDS: LACTATED RINGERS 1,000 ML 100 ML IV CONT (06:10)
--- NOTE | 2022-04-23 07:43 | WPDGIPROGNO ---
Progress Note: A&P Assessment and Plan (1) Acute pancreatitis: Code(s): K85.90 - Acute pancreatitis without necrosis or infection, unspecified Status: Acute Assessment and Plan: His pancreatitis came on suddenly. So far there is no etiology known for his pancreatitis. He does not drink alcohol. Liver enzymes are not elevated to suggest choledocholithiasis. We will need to consider the possibility of pancreas divisum or other anomaly. MRI will be helpful in that regard. Because he had his 2nd CT scan last night I think we will wait a couple of days to do the MRI to help follow the progress and evolution of his pancreatitis in addition to providing any evidence of structural abnormalities . He is on antibiotics as he does have evidence of some early necrotizing changes in the pancreas. His white blood count was initially 30,000. Is now down to 19,800. I discussed with him the fact that pancreatitis, like a sprain or pulled muscle, must heal on its own. At that there is no medication that speeds up the recovery. I explained that because it is the primary source for enzymes to digest food, that eating would not be advantageous as it likely would cause pain and probably inflammation to worsen. Nevertheless, I think that he would be able to tolerate clear liquids he tolerated clear liquids but he felt that it had him up urinating a lot during the night. He is not particularly hungry yet, and still having enough pain that is not appropriate yet to advance his diet further at this juncture (2) Hepatic steatosis: Code(s): K76.0 - Fatty (change of) liver, not elsewhere classified Status: Acute Assessment and Plan: Explained him that this is due to being overweight and should be followed with regular blood work. His LFTs at this time are normal. (3) Ascites: Code(s): R18.8 - Other ascites Status: Acute Assessment and Plan: this may be pancreatic ascites. It is best not to tap it unless it becomes extensive. (4) GERD (gastroesophageal reflux disease): Code(s): K21.9 - Gastro-esophageal reflux disease without esophagitis Status: Acute Assessment and Plan: he has been treated for reflux for quite some time and has had no change in no symptoms. (5) Leukocytosis: Code(s): D72.829 - Elevated white blood cell count, unspecified Status: Acute Assessment and Plan: this is likely due to inflammation. It is rare to have infected necrosis from pancreatitis within the 1st for 5 days. Nevertheless antibiotics may be of help. 04/23/2022 down to 15,700 this morning. if MR Kerr suggests persistent pancreatic necrosis, I would consider switching to Imipenem, for better penetration of the pancreatic tissue Subjective Date/time seen: Hakan Rider is a 41 year old male? who suddenly developed epigastric pain on Friday morning.? The only thing he had the eat that day was a pop tart.? He had several episodes of vomiting that day, ? Including once after admission.? He has had persistent pain since then and is mildly relieved by Dilaudid.? He is feeling a bit distended and constipated.? He has been up walking around the try in help pass gas.? He has never had pancreatitis in the past.? On admission his lipase was greater than 40,000. he does not drink alcohol.? He has not had hypertriglyceridemia.? His triglyceride level here is slightly elevated at 319 but not in a range that would cause pancreatitis.? Ultrasound was negative for gallstones.? There is no family history of pancreatic disease.? He has not recently been started any new medications.? He only takes omeprazole once daily.? He has no autoimmune diseases. ?CT scan shows pancreatitis and early thrombosis of small splenic vessels: Worsening findings of acute pancreatitis. Hypodense foci in the pancreatic body may represent a developing pseudocyst or focal necrosis. Multifocal nonocclusive splenic vein
[2022-04-23] MEDS: BISACODYL 10 MG SUPPOSITORY RECTAL (08:48)
[2022-04-23] MEDS: FAMOTIDINE 20 MG/2 ML VIAL IV PUSH ×2 (08:48→21:23)
[2022-04-23] MEDS: POTASSIUM CHLORIDE 20 MEQ TABLET 40 MEQ PO (08:48)
[2022-04-23] MEDS: METOPROLOL TARTRATE 12.5 MG TABLET PO ×2 (08:49→21:23)
[2022-04-23 08:55] LABS: Partial Thromboplastin Time 62.8 SECONDS (22.3-36.8)
[2022-04-23] MEDS: HEPARIN SOD/D5W 100 UNITS/ML 25,000 UNITS/250 ML BAG 21 UNITS IV CONT ×3 (09:19→17:58)
[2022-04-23] MEDS: HEPARIN SODIUM 5,000 UNITS/ML VIAL 3500 UNITS IV PUSH (09:23)
--- NOTE | 2022-04-23 16:34 | PM.IMPN ---
Progress Note: A&P Assessment and Plan (1) Acute pancreatitis: Code(s): K85.90 - Acute pancreatitis without necrosis or infection, unspecified Status: Acute Assessment and Plan: Patient presents with abdominal pain and found to have a lipase of >40K. CT of the abdomen pelvis shows acute pancreatitis as well as acute peripancreatic fluid collection. Right upper quadrant ultrasound shows hepatic steatosis and trace ascites but no gallstones. No gallbladder wall thickening. Common bile duct measurement is normal. Triglycerides 319. Patient denies alcohol use. IgG subclass panel is pending. Consider passed gallstone? MRCP showing no pancreatic divisum or GS or choledocholithiasis. Lipase up slightly to 439 could be related to starting diet. White count climbed to 31 K with CRP 35. Procalcitonin 0.9. CT repeated showing worsening findings of acute pancreatitis with pseudocyst vs necorsis, splenic vein thrombosis and moderate ascites. Small bilateral pleural effusions related to pancreatitis and IV fluids. Heparin started. Zosyn started 04/21 at 2230. Ascites is reactionary. Suspect leukocytosis is more likely related to inflammatory response from the pancreatitis verses bacterial infection but now having fevers. WBC trending down (even before starting the abx). GI consulted and appreciate their input. Continue clear liquids. Stop IV fluids. Monitor fever curve. Add incentive spirometry. Check sputum. Check CXR. Continue Zosyn. (2) Splenic vein thrombosis: Code(s): I82.890 - Acute embolism and thrombosis of other specified veins Status: Acute Assessment and Plan: CT scan showing multifocal nonocclusive splenic vein thrombi. Heparin Drip started on 04/22. Continue to monitor H&H closely. Appreciate GI input. (3) Leukocytosis: Code(s): D72.829 - Elevated white blood cell count, unspecified Status: Acute Assessment and Plan: White count was elevated on admission and climbed to 31K. Suspect this is more related to noninfectious inflammatory response than true infection of the pancreatic necrosis. White count was trending down prior to starting antibiotics. White count continues to trend downward. Will continue to monitor. Continue antibiotics for now. (4) Ascites: Code(s): R18.8 - Other ascites Status: Acute Assessment and Plan: Ascites related to the pancreatitis. MR showing small volume of ascited. This should resolve on its own. (5) Benign essential hypertension: Code(s): I10 - Essential (primary) hypertension Status: Acute Assessment and Plan: Patient with a history of hypertension. He is not on anti hypertensive agents on admission. Blood pressure reviewed and blood pressure mildly elevated. He was on IV Lopressor but changed to oral. Continue to monitor. (6) Gastroesophageal reflux disease: Code(s): K21.9 - Gastro-esophageal reflux disease without esophagitis Status: Acute Assessment and Plan: Stable. Continue Pepcid. (7) Hepatic steatosis: Code(s): K76.0 - Fatty (change of) liver, not elsewhere classified Status: Acute Assessment and Plan: Hepatic steatosis noted on imaging. A1c 5.6. Encouraged healthy lifestyle. Plan DVT prophylaxis: Heparin Diet: Clear liquids Code status: Full Disposition: Home Subjective Date/time seen: 04/23/22 16:34 Interval history: 41yo male with HTN and GERD [place] presents with abdominal pain and found to have pancreatitis. Patient had fever overnight. He has a dry cough. No dysuria or hematuria. No nausea or vomiting. Denies chest pain. No calf pain. He is passing flatus and bowel movements. His abdominal pain waxes and wanes to his eye /10. Exam Narrative: Tm 101.0 99.8 154/86 105 16 95% ra Gen - NARD Chest - decreased BS in the bases o/w clear. CV - RRR S1/S2. Abd - soft. Abd less tender today. Ext - trace peda
[2022-04-23 21:56] LABS: Partial Thromboplastin Time 89.9 SECONDS (22.3-36.8)
[2022-04-24] MEDS: HEPARIN SOD/D5W 100 UNITS/ML 25,000 UNITS/250 ML BAG 21 UNITS IV CONT ×2 (03:36→15:58)
[2022-04-24 05:52] VITALS: BP 165/95; PULSE 93; RESP 19; TEMP 38; O2SAT 96
[2022-04-24] MEDS: ONDANSETRON INJ 4 MG/2 ML VIAL IV PUSH ×4 (06:14→21:18)
[2022-04-24] MEDS: HYDROmorphone HCL INJ (*CRX) 1 MG/ML SYR IV PUSH ×3 (06:14→15:04)
[2022-04-24] MEDS: hydrALAZINE HCL 20 MG/ML VIAL 10 MG IV PUSH (06:14)
[2022-04-24 06:39] LABS: Hematocrit 37.5 % (42.0-52.0); Hemoglobin 11.7 g/dL (14.0-18.0); Mean Corpuscular HGB Conc 31.2 g/dl (32-36); Mean Corpuscular Hemoglobin 26.1 pg (26-34); Mean Corpuscular Volume 83.5 fl (80-100); Mean Platelet Volume 10.9 fl (7.4-10.4); Platelet Count Result 368 k/mm3 (150-375); Red Blood Count 4.49 M/mm3 (4.6-6.20); Red Cell Distribution Width 14.6 % (11.5-14.5); White Blood Count 12.5 K/mm3 (4.5-10.0)
--- NOTE | 2022-04-24 06:45 | WPDGIPROGNO ---
Progress Note: A&P Assessment and Plan (1) Acute pancreatitis: Code(s): K85.90 - Acute pancreatitis without necrosis or infection, unspecified Status: Acute Assessment and Plan: Patient presents with abdominal pain and found to have a lipase of >40K. CT of the abdomen pelvis shows acute pancreatitis as well as acute peripancreatic fluid collection. Right upper quadrant ultrasound shows hepatic steatosis and trace ascites but no gallstones. No gallbladder wall thickening. Common bile duct measurement is normal. Triglycerides 319. Patient denies alcohol use. IgG subclass panel is pending. Consider passed gallstone? MRCP showing no pancreatic divisum or GS or choledocholithiasis. Lipase up slightly to 439 could be related to starting diet. White count climbed to 31 K with CRP 35. Procalcitonin 0.9. CT repeated showing worsening findings of acute pancreatitis with pseudocyst vs necorsis, splenic vein thrombosis and moderate ascites. Small bilateral pleural effusions related to pancreatitis and IV fluids. Heparin started. Zosyn started 04/21 at 2230. Ascites is reactionary. Suspect leukocytosis is more likely related to inflammatory response from the pancreatitis verses bacterial infection but now having fevers. WBC trending down (even before starting the abx). 04/24/2022 this morning's labs are still pending. MR Kerr looks good. There is no evidence of choledocholithiasis or pancreas divisum. At this point the etiology of his pancreatitis is unknown and will likely remain so. (2) Splenic vein thrombosis: Code(s): I82.890 - Acute embolism and thrombosis of other specified veins Status: Acute Assessment and Plan: CT scan showing multifocal nonocclusive splenic vein thrombi. Heparin Drip started on 04/22. Continue to monitor H&H closely. Appreciate GI input. (3) Leukocytosis: Code(s): D72.829 - Elevated white blood cell count, unspecified Status: Acute Assessment and Plan: White count was elevated on admission and climbed to 31K. Suspect this is more related to noninfectious inflammatory response than true infection of the pancreatic necrosis. White count was trending down prior to starting antibiotics. White count continues to trend downward. Will continue to monitor. Continue antibiotics for now. 04/24/2022 temp is up slightly. (4) Ascites: Code(s): R18.8 - Other ascites Status: Acute Assessment and Plan: Ascites related to the pancreatitis. MR showing small volume of ascited. This should resolve on its own. (5) Benign essential hypertension: Code(s): I10 - Essential (primary) hypertension Status: Acute Assessment and Plan: Patient with a history of hypertension. He is not on anti hypertensive agents on admission. Blood pressure reviewed and blood pressure mildly elevated. He was on IV Lopressor but changed to oral. Continue to monitor. (6) Gastroesophageal reflux disease: Code(s): K21.9 - Gastro-esophageal reflux disease without esophagitis Status: Acute Assessment and Plan: Stable. Continue Pepcid. (7) Hepatic steatosis: Code(s): K76.0 - Fatty (change of) liver, not elsewhere classified Status: Acute Assessment and Plan: Hepatic steatosis noted on imaging. A1c 5.6. Encouraged healthy lifestyle. Plan DVT prophylaxis: Heparin Diet: Clear liquids Code status: Full Disposition: Home Subjective Date/time seen: 04/24/22 06:45 He states he is gradually feeling better. He tolerated clear liquids except after 1 meal it made him feel full. No emesis. He made it through the night without pain medication until early this morning. He has been passing gas. Exam Const: General: alert Nutritional Appearance: overweight Orientation/consciousness: patient oriented x3 Resp: Auscultation: clear to auscultation bilaterally Cardio: Rhythm: regular rhythm GI: Inspec
[2022-04-24 06:55] LABS: Partial Thromboplastin Time 75.8 SECONDS (22.3-36.8)
[2022-04-24 06:59] LABS: Alanine Aminotransferase 17 U/L (6-50); Albumin Level 3.7 g/dL (3.5-5.1); Alkaline Phosphatase 110 U/L (38-126); Anion Gap 8 mmol/L (8-16); Aspartate Amino Transferase 49 U/L (17-59); Bilirubin,Total 0.5 mg/dL (0.2-1.3); Blood Urea Nitrogen 7 mg/dL (9-20); Calcium 8.3 mg/dL (8.4-10.2); Carbon Dioxide 25 mmol/L (22-30); Chloride 106 mmol/L (98-107); Estimated CRCL calculation 106 ml/min; Estimated Glomerular Filt Rate > 60; Glucose 113 mg/dL (65-110); Lipase 396 U/L (23-300); Potassium 3.1 mmol/L (3.4-5.0); Sodium 139 mmol/L (137-145)
[2022-04-24] MEDS: FAMOTIDINE 20 MG/2 ML VIAL IV PUSH ×2 (08:55→20:52)
[2022-04-24 08:56] VITALS: PULSE 101
[2022-04-24] MEDS: METOPROLOL TARTRATE 12.5 MG TABLET PO ×2 (08:56→20:52)
[2022-04-24 11:04] LABS: Immunoglobulin G, Serum 780 mg/dL (600-1640); Immunoglobulin G1 441 mg/dL (382-929); Immunoglobulin G2 222 mg/dL (241-700); Immunoglobulin G3 23 mg/dL (22-178); Immunoglobulin G4 29.6 mg/dL (4.0-86.0)
[2022-04-24 14:00] VITALS: BP 139/91; PULSE 93; RESP 18; TEMP 36.5; O2SAT 94
--- NOTE | 2022-04-24 15:33 | PM.IMPN ---
Progress Note: A&P Assessment and Plan (1) Acute pancreatitis: Code(s): K85.90 - Acute pancreatitis without necrosis or infection, unspecified Status: Acute Assessment and Plan: Patient presents with abdominal pain and found to have a lipase of >40K. CT of the abdomen pelvis shows acute pancreatitis as well as acute peripancreatic fluid collection. Right upper quadrant ultrasound shows hepatic steatosis and trace ascites but no gallstones. No gallbladder wall thickening. Common bile duct measurement is normal. Triglycerides 319. Patient denies alcohol use. IgG subclass panel with normal IgG 4. Consider passed gallstone? MRCP showing no pancreatic divisum or GS or choledocholithiasis. Lipase Continues to improve . White count climbed to 31 K with CRP 35. Procalcitonin 0.9. CT repeated showing worsening findings of acute pancreatitis with pseudocyst vs necorsis, splenic vein thrombosis and moderate ascites. Small bilateral pleural effusions related to pancreatitis and IV fluids. Heparin started. Zosyn started 04/21 at 2230. Ascites is reactionary. Suspect leukocytosis is more likely related to inflammatory response from the pancreatitis verses bacterial infection but now having fevers. WBC trending down (even before starting the abx). GI consulted and appreciate their input. Patient started on a diet and currently tolerating low-fat diet. Monitor fever curve. Add incentive spirometry. Continue Zosyn. Chest x-ray with stable findings (2) Splenic vein thrombosis: Code(s): I82.890 - Acute embolism and thrombosis of other specified veins Status: Acute Assessment and Plan: CT scan showing multifocal nonocclusive splenic vein thrombi. Heparin Drip started on 04/22. Continue to monitor H&H closely. Appreciate GI input. Will switch to Eliquis once more stable (3) Leukocytosis: Code(s): D72.829 - Elevated white blood cell count, unspecified Status: Acute Assessment and Plan: White count was elevated on admission and climbed to 31K. Suspect this is more related to noninfectious inflammatory response than true infection of the pancreatic necrosis. White count was trending down prior to starting antibiotics. White count continues to trend downward. Will continue to monitor. Continue antibiotics for now. (4) Ascites: Code(s): R18.8 - Other ascites Status: Acute Assessment and Plan: Ascites related to the pancreatitis. MR showing small volume of ascites. This should resolve on its own. (5) Benign essential hypertension: Code(s): I10 - Essential (primary) hypertension Status: Acute Assessment and Plan: Patient with a history of hypertension. He is not on anti hypertensive agents on admission. Blood pressure reviewed and blood pressure mildly elevated. He was on IV Lopressor but changed to oral. Continue to monitor. (6) Gastroesophageal reflux disease: Code(s): K21.9 - Gastro-esophageal reflux disease without esophagitis Status: Acute Assessment and Plan: Stable. Continue Pepcid. (7) Hepatic steatosis: Code(s): K76.0 - Fatty (change of) liver, not elsewhere classified Status: Acute Assessment and Plan: Hepatic steatosis noted on imaging. A1c 5.6. Encouraged healthy lifestyle. Plan DVT prophylaxis: Heparin Diet: low-fat Code status: Full Disposition: Home Subjective Date/time seen: 04/24/22 15:33 Interval history: 41yo male with HTN and GERD [place] presents with abdominal pain and found to have pancreatitis. patient feeling okay. On low-fat diet which he tolerates. Abdomen less sore. No nausea vomiting. Still having on and off fever. Discussed with the patient Review of Systems Review of Systems: All systems reviewed & are unremarkable except as noted in HPI and below Exam Narrative: Gen - NARD Chest - decreased BS in the bases o/w clear. CV - RRR
[2022-04-24] MEDS: POTASSIUM CHLORIDE 20 MEQ TABLET 40 MEQ PO (15:57)
[2022-04-24 20:00] VITALS: O2SAT 99
[2022-04-24 20:52] VITALS: PULSE 76
[2022-04-24] MEDS: ACETAMINOPHEN 325 MG TABLET 650 MG PO (21:06)
[2022-04-24] MEDS: polyethylene glycoL 3350 17 GM POWD.PACK PO (21:06)
[2022-04-24 22:00] VITALS: BP 152/91; PULSE 80; RESP 17; TEMP 36.4; O2SAT 99
[2022-04-25] MEDS: HEPARIN SOD/D5W 100 UNITS/ML 25,000 UNITS/250 ML BAG 21 UNITS IV CONT ×2 (02:55→16:28)
[2022-04-25 05:34] VITALS: BP 151/88; PULSE 85; RESP 17; TEMP 37; O2SAT 94
[2022-04-25 06:46] LABS: Hematocrit 38.5 % (42.0-52.0); Hemoglobin 12.1 g/dL (14.0-18.0); Mean Corpuscular HGB Conc 31.4 g/dl (32-36); Mean Corpuscular Hemoglobin 26.1 pg (26-34); Mean Platelet Volume 10.5 fl (7.4-10.4); Platelet Count Result 441 k/mm3 (150-375); Red Blood Count 4.64 M/mm3 (4.6-6.20); Red Cell Distribution Width 14.6 % (11.5-14.5); White Blood Count 13.4 K/mm3 (4.5-10.0)
[2022-04-25 07:03] LABS: Partial Thromboplastin Time 73.1 SECONDS (22.3-36.8)
[2022-04-25 07:04] LABS: Alanine Aminotransferase 21 U/L (6-50); Albumin Level 4.2 g/dL (3.5-5.1); Alkaline Phosphatase 121 U/L (38-126); Anion Gap 12 mmol/L (8-16); Aspartate Amino Transferase 43 U/L (17-59); Bilirubin,Total 0.5 mg/dL (0.2-1.3); Blood Urea Nitrogen 10 mg/dL (9-20); Carbon Dioxide 24 mmol/L (22-30); Chloride 105 mmol/L (98-107); Estimated CRCL calculation 106 ml/min; Estimated Glomerular Filt Rate > 60; Glucose 105 mg/dL (65-110); Lipase 431 U/L (23-300); Magnesium 2.7 mg/dL (1.6-2.3); Potassium 3.6 mmol/L (3.4-5.0); Sodium 141 mmol/L (137-145)
[2022-04-25] MEDS: ONDANSETRON INJ 4 MG/2 ML VIAL IV PUSH ×3 (07:30→16:05)
[2022-04-25 08:13] VITALS: PULSE 84
[2022-04-25] MEDS: FAMOTIDINE 20 MG/2 ML VIAL IV PUSH ×2 (08:13→20:54)
[2022-04-25] MEDS: METOPROLOL TARTRATE 12.5 MG TABLET PO ×2 (08:13→20:54)
--- NOTE | 2022-04-25 10:27 | WPDGIPROGNO ---
Progress Note: A&P Assessment and Plan (1) Acute pancreatitis: Code(s): K85.90 - Acute pancreatitis without necrosis or infection, unspecified Status: Acute Assessment and Plan: Patient presents with abdominal pain and found to have a lipase of >40K. CT of the abdomen pelvis shows acute pancreatitis as well as acute peripancreatic fluid collection. Right upper quadrant ultrasound shows hepatic steatosis and trace ascites but no gallstones. No gallbladder wall thickening. Common bile duct measurement is normal. Triglycerides 319. Patient denies alcohol use. IgG subclass panel is pending. Consider passed gallstone? MRCP showing no pancreatic divisum or GS or choledocholithiasis. Lipase up slightly to 439 could be related to starting diet. White count climbed to 31 K with CRP 35. Procalcitonin 0.9. CT repeated showing worsening findings of acute pancreatitis with pseudocyst vs necorsis, splenic vein thrombosis and moderate ascites. Small bilateral pleural effusions related to pancreatitis and IV fluids. Heparin started. Zosyn started 04/21 at 2230. Ascites is reactionary. Suspect leukocytosis is more likely related to inflammatory response from the pancreatitis verses bacterial infection but now having fevers. WBC trending down (even before starting the abx). 04/24/2022 this morning's labs are still pending. MR Kerr looks good. There is no evidence of choledocholithiasis or pancreas divisum. At this point the etiology of his pancreatitis is unknown and will likely remain so. 04/25/22 Lipase remains somewhat elevated. Will begin pancreatic enzsyme supplemets. (2) Splenic vein thrombosis: Code(s): I82.890 - Acute embolism and thrombosis of other specified veins Status: Acute Assessment and Plan: CT scan showing multifocal nonocclusive splenic vein thrombi. Heparin Drip started on 04/22. Continue to monitor H&H closely. Appreciate GI input. (3) Leukocytosis: Code(s): D72.829 - Elevated white blood cell count, unspecified Status: Acute Assessment and Plan: White count was elevated on admission and climbed to 31K. Suspect this is more related to noninfectious inflammatory response than true infection of the pancreatic necrosis. White count was trending down prior to starting antibiotics. White count continues to trend downward. Will continue to monitor. Continue antibiotics for now. 04/24/2022 temp is up slightly. (4) Ascites: Code(s): R18.8 - Other ascites Status: Acute Assessment and Plan: Ascites related to the pancreatitis. MR showing small volume of ascited. This should resolve on its own. (5) Benign essential hypertension: Code(s): I10 - Essential (primary) hypertension Status: Acute Assessment and Plan: Patient with a history of hypertension. He is not on anti hypertensive agents on admission. Blood pressure reviewed and blood pressure mildly elevated. He was on IV Lopressor but changed to oral. Continue to monitor. (6) Gastroesophageal reflux disease: Code(s): K21.9 - Gastro-esophageal reflux disease without esophagitis Status: Acute Assessment and Plan: Stable. Continue Pepcid. (7) Hepatic steatosis: Code(s): K76.0 - Fatty (change of) liver, not elsewhere classified Status: Acute Assessment and Plan: Hepatic steatosis noted on imaging. A1c 5.6. Encouraged healthy lifestyle. Plan DVT prophylaxis: Heparin Diet: Clear liquids Code status: Full Disposition: Home Subjective Date/time seen: Patient presents with abdominal pain and found to have a lipase of >40K.? CT of the abdomen pelvis shows acute pancreatitis as well as acute peripancreatic fluid collection. Right upper quadrant ultrasound shows hepatic steatosis and trace ascites but no gallstones.? No gallbladder wall thickening. Common bile duct measurement is normal. Triglycerides 319.? Patient denies alcohol
[2022-04-25] MEDS: LIPASE/AMYLASE/PROTEASE 12,000 UNITS CAP 2 CAP PO ×2 (11:31→16:05)
[2022-04-25] MEDS: ACETAMINOPHEN 325 MG TABLET 650 MG PO (11:38)
[2022-04-25 13:33] LABS: Procalcitonin 0.2 ng/mL
[2022-04-25 14:00] VITALS: BP 161/90; PULSE 83; RESP 20; TEMP 36.5; O2SAT 96
--- NOTE | 2022-04-25 14:52 | PM.IMPN ---
Progress Note: A&P Assessment and Plan (1) Acute pancreatitis: Code(s): K85.90 - Acute pancreatitis without necrosis or infection, unspecified Status: Acute Assessment and Plan: Patient presents with abdominal pain and found to have a lipase of >40K. CT of the abdomen pelvis shows acute pancreatitis as well as acute peripancreatic fluid collection. Right upper quadrant ultrasound shows hepatic steatosis and trace ascites but no gallstones. No gallbladder wall thickening. Common bile duct measurement is normal. Triglycerides 319. Patient denies alcohol use. IgG subclass panel with normal IgG 4. Consider passed gallstone? MRCP showing no pancreatic divisum or GS or choledocholithiasis. Lipase Continues to improve . White count climbed to 31 K with CRP 35. Procalcitonin 0.9. CT repeated showing worsening findings of acute pancreatitis with pseudocyst vs necorsis, splenic vein thrombosis and moderate ascites. Small bilateral pleural effusions related to pancreatitis and IV fluids. Heparin started. Zosyn started 04/21 at 2230. Ascites is reactionary. Suspect leukocytosis is more likely related to inflammatory response from the pancreatitis verses bacterial infection but now having fevers. WBC trending down (even before starting the abx). GI consulted and appreciate their input. Patient started on a diet and currently tolerating low-fat diet. Monitor fever curve. Add incentive spirometry. Continue Zosyn. Chest x-ray with stable findings (2) Splenic vein thrombosis: Code(s): I82.890 - Acute embolism and thrombosis of other specified veins Status: Acute Assessment and Plan: CT scan showing multifocal nonocclusive splenic vein thrombi. Heparin Drip started on 04/22. Continue to monitor H&H closely. Appreciate GI input. Will switch to Eliquis once more stable Checking on Eliquis/ Xarelto pricing Anticipate plan to treat for 3-6 months unless GI thinks otherwise (3) Leukocytosis: Code(s): D72.829 - Elevated white blood cell count, unspecified Status: Acute Assessment and Plan: White count was elevated on admission and climbed to 31K. Suspect this is more related to noninfectious inflammatory response than true infection of the pancreatic necrosis. White count was trending down prior to starting antibiotics. White count continues to trend downward. Will continue to monitor. Continue antibiotics for now. (4) Ascites: Code(s): R18.8 - Other ascites Status: Acute Assessment and Plan: Ascites related to the pancreatitis. MR showing small volume of ascites. This should resolve on its own. (5) Benign essential hypertension: Code(s): I10 - Essential (primary) hypertension Status: Acute Assessment and Plan: Patient with a history of hypertension. He is not on anti hypertensive agents on admission. Blood pressure reviewed and blood pressure mildly elevated. He was on IV Lopressor but changed to oral. Continue to monitor. (6) Gastroesophageal reflux disease: Code(s): K21.9 - Gastro-esophageal reflux disease without esophagitis Status: Acute Assessment and Plan: Stable. Continue Pepcid. (7) Hepatic steatosis: Code(s): K76.0 - Fatty (change of) liver, not elsewhere classified Status: Acute Assessment and Plan: Hepatic steatosis noted on imaging. A1c 5.6. Encouraged healthy lifestyle. Plan DVT prophylaxis: Heparin Diet: low-fat Code status: Full Disposition: Home Subjective Date/time seen: 04/25/22 14:52 Interval history: 41yo male with HTN and GERD [place] presents with abdominal pain and found to have pancreatitis. No overnight events. Denies any new complaints. Still has some back pain and some nausea. Denies abdominal pain tolerating low-fat diet. No fever for the past 24 hours. Review of Systems Review of Systems: All systems reviewed & are unremarkable exc
[2022-04-25 20:54] VITALS: PULSE 82
[2022-04-25] MEDS: HYDROmorphone HCL INJ (*CRX) 1 MG/ML SYR IV PUSH (20:58)
[2022-04-25 21:29] VITALS: BP 160/91; PULSE 85; RESP 17; TEMP 36.7; O2SAT 97
[2022-04-26] MEDS: HEPARIN SOD/D5W 100 UNITS/ML 25,000 UNITS/250 ML BAG 21 UNITS IV CONT (02:52)
[2022-04-26] MEDS: ACETAMINOPHEN 325 MG TABLET 650 MG PO (03:19)
[2022-04-26 05:23] LABS: Hematocrit 36.2 % (42.0-52.0); Hemoglobin 11.5 g/dL (14.0-18.0); Mean Corpuscular HGB Conc 31.8 g/dl (32-36); Mean Corpuscular Hemoglobin 26.3 pg (26-34); Mean Corpuscular Volume 82.8 fl (80-100); Mean Platelet Volume 10.1 fl (7.4-10.4); Platelet Count Result 427 k/mm3 (150-375); Red Blood Count 4.37 M/mm3 (4.6-6.20); Red Cell Distribution Width 14.7 % (11.5-14.5); White Blood Count 14.6 K/mm3 (4.5-10.0)
[2022-04-26 05:30] VITALS: BP 150/94; PULSE 76; RESP 18; TEMP 36.9; O2SAT 95
[2022-04-26 05:34] LABS: Partial Thromboplastin Time 101.2 SECONDS (22.3-36.8)
[2022-04-26 05:35] LABS: Alanine Aminotransferase 23 U/L (6-50); Albumin Level 3.8 g/dL (3.5-5.1); Alkaline Phosphatase 115 U/L (38-126); Anion Gap 10 mmol/L (8-16); Aspartate Amino Transferase 58 U/L (17-59); Bilirubin,Total 0.3 mg/dL (0.2-1.3); Blood Urea Nitrogen 14 mg/dL (9-20); Calcium 8.5 mg/dL (8.4-10.2); Carbon Dioxide 25 mmol/L (22-30); Chloride 106 mmol/L (98-107); Estimated CRCL calculation 96 ml/min; Estimated Glomerular Filt Rate > 60; Glucose 101 mg/dL (65-110); Lipase 692 U/L (23-300); Potassium 3.4 mmol/L (3.4-5.0); Sodium 141 mmol/L (137-145)
--- NOTE | 2022-04-26 06:32 | WPDGIPROGNO ---
Progress Note: A&P Assessment and Plan (1) Acute pancreatitis: Code(s): K85.90 - Acute pancreatitis without necrosis or infection, unspecified Status: Acute Assessment and Plan: Patient presents with abdominal pain and found to have a lipase of >40K. CT of the abdomen pelvis shows acute pancreatitis as well as acute peripancreatic fluid collection. Right upper quadrant ultrasound shows hepatic steatosis and trace ascites but no gallstones. No gallbladder wall thickening. Common bile duct measurement is normal. Triglycerides 319. Patient denies alcohol use. IgG subclass panel is pending. Consider passed gallstone? MRCP showing no pancreatic divisum or GS or choledocholithiasis. Lipase up slightly to 439 could be related to starting diet. White count climbed to 31 K with CRP 35. Procalcitonin 0.9. CT repeated showing worsening findings of acute pancreatitis with pseudocyst vs necorsis, splenic vein thrombosis and moderate ascites. Small bilateral pleural effusions related to pancreatitis and IV fluids. Heparin started. Zosyn started 04/21 at 2230. Ascites is reactionary. Suspect leukocytosis is more likely related to inflammatory response from the pancreatitis verses bacterial infection but now having fevers. WBC trending down (even before starting the abx). 04/24/2022 this morning's labs are still pending. MR Kerr looks good. There is no evidence of choledocholithiasis or pancreas divisum. At this point the etiology of his pancreatitis is unknown and will likely remain so. 04/25/22 Lipase remains somewhat elevated. Will begin pancreatic enzsyme supplemets. 04/26/2022 overall he is feeling better and not relying on pain medication. Tolerating his diet. I discussed with him low fat diet the fact that he would need to stay on that diet plus take pancreatic enzyme supplements for the next 4 weeks. He knows that he cannot have alcohol. I will see him in the office in 2 or 3 weeks. (2) Splenic vein thrombosis: Code(s): I82.890 - Acute embolism and thrombosis of other specified veins Status: Acute Assessment and Plan: CT scan showing multifocal nonocclusive splenic vein thrombi. Heparin Drip started on 04/22. Continue to monitor H&H closely. Appreciate GI input. 04/26/2022 he has been started on heparin for multifocal thrombi in splenic veins. He is on heparin. He is concerned about going home on Eliquis as his pharmacy stated it would cost him several 100 dollars. I will check a CT scan this morning. Hopefully they have resolved and he can get by without Eliquis. (3) Leukocytosis: Code(s): D72.829 - Elevated white blood cell count, unspecified Status: Acute Assessment and Plan: White count was elevated on admission and climbed to 31K. Suspect this is more related to noninfectious inflammatory response than true infection of the pancreatic necrosis. White count was trending down prior to starting antibiotics. White count continues to trend downward. Will continue to monitor. Continue antibiotics for now. 04/24/2022 temp is up slightly. 04/26 procalcitonin remains normal. I think leukocytosis is secondary to inflammation, not infection. I would stop antibiotics and observe. if he should develop signs or symptoms that suggest he does have infected necrosis, then Imipenem would be drug of choice. (4) Ascites: Code(s): R18.8 - Other ascites Status: Acute Assessment and Plan: Ascites related to the pancreatitis. MR showing small volume of ascited. This should resolve on its own. (5) Benign essential hypertension: Code(s): I10 - Essential (primary) hypertension Status: Acute Assessment and Plan: Patient with a history of hypertension. He is not on anti hypertensive agents on admission. Blood pressure reviewed and blood pressure mildly elevated. He was on IV Lopressor but changed to oral. Continue to monitor. (6) Gastroesophageal re
[2022-04-26] MEDS: METOPROLOL TARTRATE 12.5 MG TABLET PO ×2 (08:35→20:12)
[2022-04-26] MEDS: LIPASE/AMYLASE/PROTEASE 12,000 UNITS CAP 2 CAP PO ×3 (08:36→17:14)
[2022-04-26] MEDS: FAMOTIDINE 20 MG/2 ML VIAL IV PUSH ×2 (08:36→20:12)
--- NOTE | 2022-04-26 13:51 | PM.IMPN ---
Progress Note: A&P Assessment and Plan (1) Acute pancreatitis: Code(s): K85.90 - Acute pancreatitis without necrosis or infection, unspecified Status: Acute Assessment and Plan: Patient presents with abdominal pain and found to have a lipase of >40K. CT of the abdomen pelvis shows acute pancreatitis as well as acute peripancreatic fluid collection. Right upper quadrant ultrasound shows hepatic steatosis and trace ascites but no gallstones. No gallbladder wall thickening. Common bile duct measurement is normal. Triglycerides 319. Patient denies alcohol use. IgG subclass panel with normal IgG 4. Consider passed gallstone? MRCP showing no pancreatic divisum or GS or choledocholithiasis. Lipase Continues to improve . White count climbed to 31 K with CRP 35. Procalcitonin 0.9. CT repeated showing worsening findings of acute pancreatitis with pseudocyst vs necorsis, splenic vein thrombosis and moderate ascites. Small bilateral pleural effusions related to pancreatitis and IV fluids. Heparin started. Zosyn started 04/21 at 2230. Ascites is reactionary. Suspect leukocytosis is more likely related to inflammatory response from the pancreatitis verses bacterial infection but now having fevers. WBC trending down (even before starting the abx). GI consulted and appreciate their input. Patient started on a diet and currently tolerating low-fat diet. Monitor fever curve. Add incentive spirometry. Continue Zosyn. Chest x-ray with stable findings CT scan repeat 04/26 with stable findings of pancreatitis. Afebrile since past 48 hours now. Will stop Zosyn and watch off antibiotics for any recurrence of fever. On Creon supplement. Low-fat diet tolerating okay (2) Splenic vein thrombosis: Code(s): I82.890 - Acute embolism and thrombosis of other specified veins Status: Acute Assessment and Plan: CT scan showing multifocal nonocclusive splenic vein thrombi. Heparin Drip started on 04/22. Continue to monitor H&H closely. Appreciate GI input. Repeat CT 04/26 with resolution of splenic vein thrombi. No further anticoagulation indicated. This was likely related to adjacent peripancreatic inflammation. (3) Leukocytosis: Code(s): D72.829 - Elevated white blood cell count, unspecified Status: Acute Assessment and Plan: White count was elevated on admission and climbed to 31K. Suspect this is more related to noninfectious inflammatory response than true infection of the pancreatic necrosis. White count was trending down prior to starting antibiotics. White count continues to trend downward. Will continue to monitor. WBC count fluctuation likely related to underlying pancreatic inflammation rather than infection will stop antibiotics today 9 watch off antibiotics. (4) Ascites: Code(s): R18.8 - Other ascites Status: Acute Assessment and Plan: Ascites related to the pancreatitis. MR showing small volume of ascites. This should resolve on its own. (5) Benign essential hypertension: Code(s): I10 - Essential (primary) hypertension Status: Acute Assessment and Plan: Patient with a history of hypertension. He is not on anti hypertensive agents on admission. Blood pressure reviewed and blood pressure mildly elevated. He was on IV Lopressor but changed to oral. Continue to monitor. (6) Gastroesophageal reflux disease: Code(s): K21.9 - Gastro-esophageal reflux disease without esophagitis Status: Acute Assessment and Plan: Stable. Continue Pepcid. (7) Hepatic steatosis: Code(s): K76.0 - Fatty (change of) liver, not elsewhere classified Status: Acute Assessment and Plan: Hepatic steatosis noted on imaging. A1c 5.6. Encouraged healthy lifestyle. Plan DVT prophylaxis: Heparin Diet: low-fat Code status: Full Disposition: Home Subjective Date/time seen: 04/26/22 13:51 Interval history: 41yo
[2022-04-26 14:00] VITALS: BP 154/99; PULSE 82; RESP 18; TEMP 35.6; O2SAT 98
[2022-04-26 20:00] VITALS: PULSE 74; RESP 18; O2SAT 98
[2022-04-26 20:12] VITALS: PULSE 74
[2022-04-26 22:00] VITALS: BP 191/111; PULSE 91; RESP 20; TEMP 36.7; O2SAT 100
[2022-04-27] VITALS (7 sets, daily range): BP systolic 141–172; BP diastolic 90–101; PULSE 90–105; RESP 20; TEMP 36.2–36.8; O2SAT 97–98
[2022-04-27 06:55] LABS: Hematocrit 38.1 % (42.0-52.0); Hemoglobin 11.8 g/dL (14.0-18.0); Mean Corpuscular Hemoglobin 25.8 pg (26-34); Mean Corpuscular Volume 83.4 fl (80-100); Mean Platelet Volume 10.3 fl (7.4-10.4); Platelet Count Result 439 k/mm3 (150-375); Red Blood Count 4.57 M/mm3 (4.6-6.20); Red Cell Distribution Width 14.8 % (11.5-14.5); White Blood Count 13.6 K/mm3 (4.5-10.0)
[2022-04-27 07:18] LABS: Alanine Aminotransferase 34 U/L (6-50); Alkaline Phosphatase 120 U/L (38-126); Anion Gap 13 mmol/L (8-16); Aspartate Amino Transferase 56 U/L (17-59); Bilirubin,Total 0.4 mg/dL (0.2-1.3); Blood Urea Nitrogen 16 mg/dL (9-20); Calcium 9.2 mg/dL (8.4-10.2); Carbon Dioxide 21 mmol/L (22-30); Chloride 105 mmol/L (98-107); Estimated CRCL calculation 96 ml/min; Estimated Glomerular Filt Rate > 60; Glucose 94 mg/dL (65-110); Lipase 702 U/L (23-300); Potassium 3.4 mmol/L (3.4-5.0); Sodium 139 mmol/L (137-145)
[2022-04-27] MEDS: hydrALAZINE HCL 20 MG/ML VIAL 10 MG IV PUSH (07:32)
[2022-04-27] MEDS: LIPASE/AMYLASE/PROTEASE 12,000 UNITS CAP 2 CAP PO ×2 (08:13→13:38)
[2022-04-27] MEDS: METOPROLOL TARTRATE 12.5 MG TABLET PO (08:13)
[2022-04-27] MEDS: FAMOTIDINE 20 MG/2 ML VIAL IV PUSH (08:14)
[2022-04-27] MEDS: amLODIPine BESYLATE 5 MG TABLET PO (11:29)
--- NOTE | 2022-04-27 13:03 | PM.DS ---
DS: Admitting Diagnosis Discharge Date 04/27/2022 Admitting Diagnosis abdominal pain DS: Discharge Diagnosis Discharge Diagnosis (1) Acute pancreatitis: Code(s): K85.90 - Acute pancreatitis without necrosis or infection, unspecified Status: Acute (2) Splenic vein thrombosis: Code(s): I82.890 - Acute embolism and thrombosis of other specified veins Status: Acute (3) Leukocytosis: Code(s): D72.829 - Elevated white blood cell count, unspecified Status: Acute (4) Ascites: Code(s): R18.8 - Other ascites Status: Acute (5) Benign essential hypertension: Code(s): I10 - Essential (primary) hypertension Status: Acute (6) Gastroesophageal reflux disease: Code(s): K21.9 - Gastro-esophageal reflux disease without esophagitis Status: Acute (7) Hepatic steatosis: Code(s): K76.0 - Fatty (change of) liver, not elsewhere classified Status: Acute DS: Summary Hospital Course Hospital Course: # acute pancreatitis: Patient presents with abdominal pain and found to have a lipase of >40K.? CT of the abdomen pelvis shows acute pancreatitis as well as acute peripancreatic fluid collection. Right upper quadrant ultrasound shows hepatic steatosis and trace ascites but no gallstones.? No gallbladder wall thickening. Common bile duct measurement is normal. Triglycerides 319.? Patient denies alcohol use.? IgG subclass panel? with normal IgG 4. Consider passed gallstone? MRCP showing no pancreatic divisum or GS or choledocholithiasis. Lipase? Continues to improve But remains elevated. White count climbed to 31 K with CRP 35. Procalcitonin 0.9. CT repeated showing worsening findings of acute pancreatitis with pseudocyst vs necorsis, splenic vein thrombosis and moderate ascites. Small bilateral pleural effusions related to pancreatitis and IV fluids. Heparin IV was started along with IV Zosyn started 04/21 at 2230. Ascites is reactionary. Suspect leukocytosis is more likely related to inflammatory response from the pancreatitis verses bacterial infection but now having fevers. WBC trending down (even before starting the abx). GI consulted and appreciate their input. ? Patient started on a diet and currently tolerating low-fat diet. Monitor fever curve. Add incentive spirometry.? Continue Zosyn. ? Chest x-ray with stable findings. Repeat CT scan done on 04/26 with stable findings of pancreatitis.? Afebrile since past 72 hours hours now.? his IV antibiotics Zosyn was stopped and remained afebrile while off antibiotics. On Creon supplement.? Low-fat diet tolerating okay # splenic vein thrombosis: CT scan showing multifocal nonocclusive splenic vein thrombi.? Heparin Drip started on 04/22.? Continue to monitor H&H closely.? Appreciate GI input. Repeat CT 04/26 with resolution of splenic vein thrombi.? No further anticoagulation indicated.? This was likely related to adjacent peripancreatic inflammation. # leukocytosis: White count was elevated on admission and climbed to 31K.? Suspect this is more related to noninfectious inflammatory response than true infection of the pancreatic necrosis.? White count was trending down prior to starting antibiotics.? White count continues to trend downward But remains persistent. likely related to underlying pancreatic inflammation rather than infection. His antibiotics were stopped 04/26/2022 and watched off antibiotics and he remained afebrile. WBC count also remained stable. # ascites: Ascites related to the pancreatitis. MR showing small volume of ascites. This should resolve on its own. # hypertension: Patient with a history of hypertension.? He is not on anti hypertensive agents on admission But used to be on amlodipine past.? Blood pressure reviewed and blood pressure mildly elevated.? He was on IV Lopressor but changed to oral.? added on amlodipine 5 mg daily which has suggested to stay on. # GERD On omeprazole at home
[2022-04-27] MEDS: ACETAMINOPHEN 325 MG TABLET 650 MG PO (13:38)
--- NOTE | 2022-04-27 15:03 | WPDGIPROGNO ---
Progress Note: A&P Assessment and Plan (1) Acute pancreatitis: Code(s): K85.90 - Acute pancreatitis without necrosis or infection, unspecified Status: Acute Assessment and Plan: resolved follow-up in office (2) Hepatic steatosis: Code(s): K76.0 - Fatty (change of) liver, not elsewhere classified Status: Acute (3) Splenic vein thrombosis: Code(s): I82.890 - Acute embolism and thrombosis of other specified veins Status: Acute Assessment and Plan: resolved (4) Abdominal pain: Code(s): R10.9 - Unspecified abdominal pain Status: Acute Assessment and Plan: resolved Subjective Date/time seen: 04/27/22 15:03 Interval history: doing well, no more pain and tolerating diet home today Review of Systems Review of Systems: All systems reviewed & are unremarkable except as noted in HPI and below Exam Const: General: comfortable and no acute distress HENMT: General nose exam: Normal nares present Eyes: General: appearance normal, both eyes and all related structures Neck: Neck: no JVD Resp: Auscultation: clear to auscultation bilaterally Cardio: Rate: regular rate Rhythm: regular rhythm GI: Inspection: non-distended GI Palp: Yes Soft to palpation Skin: General skin exam: normal color Neuro: General: gait normal Speech: normal speech Extrem: General: normal to inspection Psych: Mental Status: mental status grossly normal Objective Data Vital Signs Vital Signs: Vital Signs - 24 hr 04/26/22 20:12 04/26/22 20:00 04/26/22 22:00 Temperature 98.1 F Pulse Rate 74 74 91 Respiratory Rate 18 20 Blood Pressure 191/111 H Pulse Oximetry 98 100 Oxygen Delivery Room Air 04/27/22 00:24 04/27/22 06:00 04/27/22 08:13 Temperature 97.1 F L Pulse Rate 90 105 H Respiratory Rate 20 Blood Pressure 141/101 H 172/100 H Pulse Oximetry 98 Oxygen Delivery 04/27/22 10:39 04/27/22 08:10 04/27/22 08:00 Temperature Pulse Rate 105 H Respiratory Rate Blood Pressure 160/90 H 166/97 H Pulse Oximetry 97 97 Oxygen Delivery Room Air Intake/Output Intake/Output: Intake & Output 04/24/22 04/25/22 04/26/22 04/27/22 23:59 23:59 23:59 23:59 Intake Total 1580 2316 2230 680 Balance 1580 2316 2230 680 Meds/Results Medications: Active Medications Generic Name Dose Route Start Last Admin Trade Name Freq PRN Reason Stop Dose Admin Acetaminophen 650 mg 04/24/22 21:01 04/27/22 13:38 Acetaminophen 325 Mg Tablet PO 650 mg Q6H PRN Administration Mild Pain (1-3) or Fever Amlodipine Besylate 5 mg 04/27/22 09:00 04/27/22 11:29 Amlodipine Besylate 5 Mg Tablet PO 5 mg QAM MERYL Administration Lipase/Protease/Amylase 2 cap 04/25/22 12:00 04/27/22 13:38 Lipase/Amylase/Protease 12,000 Units Cap PO 2 cap TIDWM MERYL Administration Bisacodyl 10 mg 04/20/22 11:11 Bisacodyl 10 Mg Suppository RECTAL QAM PRN Constipation Famotidine 20 mg 04/19/22 21:00 04/27/22 08:14 Famotidine 20 Mg/2 Ml Vial IV PUSH 20 mg Q12HR MERYL Administration Hydralazine HCl 10 mg 04/21/22 03:32 04/27/22 07:32 Hydralazine Hcl 20 Mg/Ml Vial IV PUSH 10 mg Q4HR PRN Administration Blood Pressure - High Hydromorphone HCl 1 mg 04/20/22 11:10 04/25/22 20:58 Hydromorphone Hcl Inj (*Crx) 1 Mg/Ml Syr IV PUSH 1 mg Q2H PRN Administration Pain Rated 7-10 Metoprolol Tartrate 12.5 mg 04/22/22 21:00 04/27/22 08:13 Metoprolol Tartrate 12.5 Mg Tablet PO 12.5 mg Q12HR MERYL Administration Ondansetron HCl 4 mg 04/19/22 14:26 04/25/22 16:05 Ondansetron Inj 4 Mg/2 Ml Vial IV PUSH 4 mg Q4H PRN Administration Nausea Radiology Results: ITS Impressions Upper Quadrant Ultrasound 04/20/22 09:52 IMPRESSION: 1. Diffuse hepatic steatosis. 2. Trace ascites. Abdomen X-Ray 04/20/22 14:00 IMPRESSION: 1. Nonobstructive bowel gas pattern.
== END 2022-04-27 16:04 | disposition home or self-care (01) | DRG 439 ==
LOC: ANHED 15:09 → ANH3MEDSUR 15:51
PROVIDERS: Internal Medicine; Internal Medicine Gastroenterology; Nurse Practitioner; Physician Assistant; Admitting Provider Student in an Organized Health Care Education/Training Program; Emergency Provider Emergency Medicine; PCP Internal Medicine; Visit Provider Internal Medicine
DX: K85.90 Acute pancreatitis without necrosis or infection, unspecified (principal); I82.890 Acute embolism and thrombosis of other specified veins; R18.8 Other ascites; J90 Pleural effusion, not elsewhere classified; K21.9 Gastro-esophageal reflux disease without esophagitis; I10 Essential (primary) hypertension; K76.0 Fatty (change of) liver, not elsewhere classified; D72.829 Elevated white blood cell count, unspecified
CPT/HCPCS: 36415; 71046; 74018; 74177; 74183; 76376; 76705; 80053; 81001; 82784; 82787; 83036; 83605; 83690; 83735; 84100; 84145; 84478; 85025; 85027; 85610; 85730; 86140; 87040; 96361; 96374; 96375; 99285; A9270; A9577; C9113; J0131; J0360; J1170; J1644; J1885; J2405; J2543; J2550; J7030; J7120; Q9967

== ENCOUNTER 2022-05-31 08:41 | Outpatient (CLI) | payer BC, SELFPAY ==
--- NOTE | ~2022-05-31 | CT_ITS ---
EXAMINATION: CT abdomen pelvis w con DATE: 05/31/2022 09:10 INDICATION: Pancreatitis TECHNIQUE: Computed tomography (CT) of the abdomen and pelvis was performed with 100 cc Omnipaque 350 intravenous contrast. The dose-length product was 484.09 mGy-cm. Automated exposure control and iterative reconstruction technique were employed. COMPARISON: CT dated 04/26/2022 FINDINGS: Lung bases are unremarkable. Heart size normal. No significant pleural or pericardial effus ion. Moderate size hiatal hernia. There is mild stranding surrounding the pancreas, consistent with pancreatitis. Decreased size of hyp oenhancing lesion involving the pancreatic body which may represent resolving sequela of acute pancre atitis such as pseudocyst or pancreatic necrosis. Gallbladder is present. Fatty infiltration of the l iver. The spleen, adrenal glands and kidneys are unremarkable. Gallbladder is present. No free air. S mall fat-containing umbilical hernia. No abnormal pelvic masses or fluid collections. No lymphadenopa thy. IMPRESSION: 1. Improving findings of acute pancreatitis. Small residual hypodense area within the pancreatic body inferiorly may represent pseudocyst or area of pancreatic necrosis. Reviewed, dictated and finalized at location B. IMPRESSION: 1. Improving findings of acute pancreatitis. Small residual hypodense area with in the pancreatic body inferiorly may represent pseudocyst or area of pancreati c necrosis.
[2022-05-31 09:02] LABS: Estimated Glomerular Filt Rate > 60
== END 2022-05-31 08:42 | disposition home or self-care (01) ==
PROVIDERS: PCP Family Medicine; Visit Provider Internal Medicine Gastroenterology
DX: K85.90 Acute pancreatitis without necrosis or infection, unspecified (principal)
CPT/HCPCS: 74177; Q9967

== ENCOUNTER 2022-10-01 12:55 | Outpatient (CLI) | payer BC, SELFPAY ==
--- NOTE | ~2022-10-01 | CT_ITS ---
EXAMINATION: CT abdomen pelvis w con INDICATION: Pancreatic cyst TECHNIQUE: Computed tomographic images of the abdomen and pelvis were obtained after the administrati on of 100 cc of Omnipaque 350 intravenous contrast. The dose-length product (DLP) was 537.77 mGy-cm. Automated exposure control and iterative reconstruction technique were employed. COMPARISON: 05/31/2022 FINDINGS: The lung bases are clear. The heart size is normal. There is a small sliding hiatal hernia. The liver, spleen, gallbladder, and adrenal glands are normal. The pancreas is unremarkable. The pre viously described peripancreatic fluid collection has resolved. The kidneys are unremarkable. No path ologically enlarged abdominal or pelvic lymph nodes are identified. There is no free intraperitoneal gas or evidence of bowel obstruction. A moderate volume of colonic stool is present. There is a smal l umbilical hernia containing fat IMPRESSION: 1. Unremarkable abdominal and pelvic CT. Resolved peripancreatic fluid collection. Reviewed, dictated and finalized at location B. TER ATTENDANT IMPRESSION: 1. Unremarkable abdominal and pelvic CT. Resolved peripancreatic fluid collecti on.
[2022-10-01 14:51] LABS: Estimated Glomerular Filt Rate > 60
== END 2022-10-01 12:56 | disposition home or self-care (01) ==
PROVIDERS: PCP Family Medicine; Visit Provider Internal Medicine Gastroenterology
DX: K85.90 Acute pancreatitis without necrosis or infection, unspecified (principal)
CPT/HCPCS: 74177; Q9967